=== PATIENT | female | born 1985 | race American Indian/Alaskan Native ===

== ENCOUNTER 2016-03-16 08:46 | Emergency (ER) | payer SELFPAY ==
[2016-03-16 08:55] VITALS: BP 117/71
[2016-03-16] MEDS ORDERED: DUONEB 0.5 MG-3 MG/3 ML SOLN IH ONE (09:09)
--- NOTE | 2016-03-16 09:44 | Emergency Department Report ---
ED Asthma HPI - General Chief Complaint: Upper Respiratory Infection Stated Complaint: ASTHMA ATTACK Time Seen by Provider: 03/16/16 09:05 Source: patient Mode of arrival: Ambulatory Limitations: No Limitations - History of Present Illness Initial Comments: Pt reports cough/congestion x 2 days with SOB since last night. Subjective fever last night. Out of albuterol at home. MD Complaint: shortness of breath, wheezing -: days(s) (1) Asthma History: childhood onset Severity: mild Context: recent URI Associated Symptoms: productive cough. denies: chest pain, hemoptysis, leg edema - Related Data Current Asthma Therapy: none Previous Rx's Medication Instructions Recorded Last Taken Type ALBUTEROL Inhaler [ProAir HFA 2 puff IH QID PRN #1 inh 03/16/16 Unknown Rx Inhaler] ALBUTEROL NEB's [Proventil 0.083% 2.5 mg IH QID PRN #25 neb 03/16/16 Unknown Rx NEBS] Nebulizer [Aeroneb Go Nebulizer] 1 each MC PRN #1 each 03/16/16 Unknown Rx predniSONE [Deltasone] 30 mg PO QDAY #15 tab 03/16/16 Unknown Rx Allergies Allergy/AdvReac Type Severity Reaction Status Date / Time No Known Allergies Allergy Verified 03/16/16 08:50 ED Review of Systems ROS: Stated complaint: ASTHMA ATTACK Other details as noted in HPI Comment: All other systems reviewed and negative Constitutional: chills. denies: fever Eyes: denies: eye pain, eye discharge, vision change ENT: congestion. denies: ear pain, throat pain Respiratory: cough, shortness of breath, wheezing Cardiovascular: denies: chest pain, palpitations Endocrine: no symptoms reported Gastrointestinal: denies: abdominal pain, nausea, diarrhea Genitourinary: denies: urgency, dysuria, discharge Musculoskeletal: denies: back pain, joint swelling, arthralgia Skin: denies: rash, lesions Neurological: denies: headache, weakness, paresthesias Psychiatric: denies: anxiety, depression Hematological/Lymphatic: denies: easy bleeding, easy bruising ED Past Medical Hx - Past Medical History Hx Asthma: Yes - Surgical History Hx Appendectomy: Yes Additional Surgical History: X 2 - Social History Smoking Status: Current Every Day Smoker Substance Use Type: Alcohol - Medications Home Medications: Home Medications Medication Instructions Recorded Confirmed Last Taken Type ALBUTEROL Inhaler [ProAir HFA 2 puff IH QID PRN #1 inh 03/16/16 Unknown Rx Inhaler] ALBUTEROL NEB's [Proventil 0.083% 2.5 mg IH QID PRN #25 neb 03/16/16 Unknown Rx NEBS] Nebulizer [Aeroneb Go Nebulizer] 1 each MC PRN #1 each 03/16/16 Unknown Rx predniSONE [Deltasone] 30 mg PO QDAY #15 tab 03/16/16 Unknown Rx ED Physical Exam - General Limitations: No Limitations General appearance: alert, in no apparent distress - Head Head exam: Present: atraumatic, normocephalic - Eye Eye exam: Present: normal appearance - ENT ENT exam: Present: normal orophraynx, mucous membranes moist - Neck Neck exam: Present: normal inspection, full ROM - Respiratory Respiratory exam: Present: wheezes, decreased breath sounds. Absent: respiratory distress, rhonchi, accessory muscle use - Cardiovascular Cardiovascular Exam: Present: regular rate, normal rhythm. Absent: systolic murmur, diastolic murmur, rubs, gallop - GI/Abdominal GI/Abdominal exam: Present: soft, normal bowel sounds - Extremities Exam Extremities exam: Present: normal inspection - Back Exam Back exam: Present: normal inspection - Neurological Exam Neurological exam: Present: alert, oriented X3 - Psychiatric Psychiatric exam: Present: normal affect, normal mood - Skin Skin exam: Present: warm, dry, intact, normal color. Absent: rash ED Course Vital Signs 03/16/16 03/16/16 03/16/16 08:48 09:21 09:36 Temperature 98.8 F Pulse Rate 100 H Pulse Rate [ 102 H 103 H Bilateral Upper Lobe] Respiratory 18 Rate Respiratory 18 20 Rate [Bilateral Upper Lobe] Blood Pressure 117/71 O2 Sat by Pulse 98 Oximetry - Reevaluation(s) Reevaluation #1: 03/16/16 10:55 Lungs clear. Feels better after nebs. Follow up/return precautions given. NAD, stable for d/c. ED Medical Decision Making - Radiology Data Radiology results: report reviewed naf - Medical Decision Making Pt with asthma exacerbation due to URI. Will treat with steroids and albuterol. No indication for abx at this time. - Differential Diagnosis asthma, pna, viral uri Critical care attestation.: If time is entered above; I have spent that time in minutes in the direct care of this critically ill patient, excluding procedure time. ED Disposition Clinical Impression: Asthma exacerbation Disposition: DISCHARGED TO HOME OR SELFCARE Is pt being admited?: No Condition: Good Instructions: Asthma (ED) Prescriptions: ALBUTEROL Inhaler [ProAir HFA Inhaler] 2 puff IH QID PRN #1 inh PRN Reason: Shortness Of Breath ALBUTEROL NEB's [Proventil 0.083% NEBS] 2.5 mg IH QID PRN #25 neb PRN Reason: Wheezing Nebulizer [Aeroneb Go Nebulizer] 1 each MC PRN #1 each predniSONE [Deltasone] 30 mg PO QDAY #15 tab Referrals: PRIMARY CARE, [Primary Care Provider] - 3-5 Days Time of Disposition: 10:59
--- NOTE | 2016-03-16 10:51 | XRay Report ---
CHEST 2 VIEWS INDICATION: Shortness of breath. COMPARISON: 02/05/2009. FINDINGS: PA and lateral chest radiographs demonstrate normal cardiomediastinal silhouette. Clear lungs. Stable bones, including possible small bilateral cervical ribs. CONCLUSION: No acute disease in the chest. Thank you for the opportunity to participate in this patient's care.
== END 2016-03-16 11:16 | disposition home or self-care (01) ==
LOC: ED 08:46
DX: J45.901 Unspecified asthma with (acute) exacerbation (principal); F17.200 Nicotine dependence, unspecified, uncomplicated; Z90.49 Acquired absence of other specified parts of digestive tract
CPT/HCPCS: 71020; 94640; 96372; 99283; J2930

== ENCOUNTER 2016-03-17 16:17 | Inpatient (IN) | payer OTHER ==
[2016-03-17] MEDS ORDERED: DUONEB 0.5 MG-3 MG/3 ML SOLN IH ONE ×3 (16:44→19:41)
[2016-03-17 17:27] LABS: Basophils % (Auto) 0.6 % (0.0-1.8); Eosinophils % (Auto) 0.1 % (0.0-4.3); Hematocrit 36.5 % (30.3-42.9); Hemoglobin 11.8 gm/dl (10.1-14.3); Mean Corpuscular HGB Conc 32 % (30-34); Mean Corpuscular Hemoglobin 27 pg (28-32); Mean Corpuscular Volume 82 fl (79-97); Platelet Count 193 K/mm3 (140-440); Red Blood Count 4.42 M/mm3 (3.65-5.03); Red Cell Distribution Width 16.3 % (13.2-15.2); White Blood Count 4.5 K/mm3 (4.5-11.0)
[2016-03-17 17:42] LABS: BUN/Creatinine Ratio 14.44; Blood Urea Nitrogen 13 mg/dL (7-17); Calcium 8.2 mg/dL (8.4-10.2); Carbon Dioxide 25 mmol/L (22-30); Chloride 99.3 mmol/L (98-107); Glucose 94 mg/dL (65-100); Potassium 3.9 mmol/L (3.6-5.0); Sodium 138 mmol/L (137-145)
[2016-03-17] MEDS ORDERED: MAGNESIUM SULFATE 2GM/50ML 2 GM/50 ML BAG IV ONE (17:48)
[2016-03-17 17:53] LABS: Anion Gap 18 mmol/L
--- NOTE | 2016-03-17 19:05 | Emergency Department Report ---
ED Asthma HPI - General Chief Complaint: Adult Asthma Stated Complaint: ASTHMA Time Seen by Provider: 03/17/16 17:50 Source: patient Mode of arrival: Wheelchair Limitations: No Limitations - History of Present Illness Initial Comments: 30-year-old female past medical history asthma, no history of intubations presents with complaint of 3-5 days of worsening wheezing and shortness of breath. Patient states she had been using her nebulizer at home with minimal to no relief of her wheezing. Patient states she came to the ER yesterday was treated with nebulizers given prescription for oral prednisone and discharged. Patient states that overnight her shortness of breath worsens which is why she presented to the ED today. On exam patient is awake alert and oriented 3 not in acute distress no audible wheezing or stridor on clinical exam. Patient is on nasal cannula with oxygen saturation at approximately 96%. Nasal cannula sent to 3 L/m. Patient states that she gets severe asthma exacerbations every few months. Denies any palpitations does state that she still feels short of breath no nausea no vomiting. Patient states that she had some subjective fever and chills. MD Complaint: shortness of breath, wheezing Onset/Timin -: days(s) Asthma History: history of prior ED visit Severity: moderate Context: ran out of meds Associated Symptoms: none Treatments Prior to Arrival: inhaled bronchodilator, IV steroid - Related Data Current Asthma Therapy: inhaled bronchodilator, recent oral steroid Baseline Peak Flow (L/min): 350 Previous Rx's Medication Instructions Recorded Last Taken Type ALBUTEROL Inhaler [ProAir HFA 2 puff IH QID PRN #1 inh 03/16/16 Unknown Rx Inhaler] ALBUTEROL NEB's [Proventil 0.083% 2.5 mg IH QID PRN #25 neb 03/16/16 Unknown Rx NEBS] Nebulizer [Aeroneb Go Nebulizer] 1 each MC PRN #1 each 03/16/16 Unknown Rx predniSONE [Deltasone] 30 mg PO QDAY #15 tab 03/16/16 Unknown Rx Allergies Allergy/AdvReac Type Severity Reaction Status Date / Time No Known Allergies Allergy Verified 03/16/16 08:50 ED Review of Systems ROS: Stated complaint: ASTHMA Other details as noted in HPI Constitutional: denies: chills, fever Eyes: denies: eye pain, eye discharge, vision change ENT: denies: ear pain, throat pain Respiratory: cough, shortness of breath, wheezing Cardiovascular: as per HPI. denies: chest pain, palpitations Endocrine: no symptoms reported Gastrointestinal: denies: abdominal pain, nausea, diarrhea Genitourinary: denies: urgency, dysuria, discharge Musculoskeletal: denies: back pain, joint swelling, arthralgia Skin: denies: rash, lesions Neurological: denies: headache, weakness, paresthesias Psychiatric: denies: anxiety, depression Hematological/Lymphatic: denies: easy bleeding, easy bruising ED Past Medical Hx - Past Medical History Hx Asthma: Yes - Surgical History Hx Appendectomy: Yes Additional Surgical History: X 2 - Social History Smoking Status: Current Every Day Smoker Substance Use Type: None - Medications Home Medications: Home Medications Medication Instructions Recorded Confirmed Last Taken Type ALBUTEROL Inhaler [ProAir HFA 2 puff IH QID PRN #1 inh 03/16/16 Unknown Rx Inhaler] ALBUTEROL NEB's [Proventil 0.083% 2.5 mg IH QID PRN #25 neb 03/16/16 Unknown Rx NEBS] Nebulizer [Aeroneb Go Nebulizer] 1 each MC PRN #1 each 03/16/16 Unknown Rx predniSONE [Deltasone] 30 mg PO QDAY #15 tab 03/16/16 Unknown Rx ED Physical Exam - General Limitations: No Limitations General appearance: alert, in no apparent distress - Head Head exam: Present: atraumatic, normocephalic - Eye Eye exam: Present: normal appearance, PERRL, EOMI - ENT ENT exam: Present: mucous membranes moist - Neck Neck exam: Present: normal inspection - Respiratory Respiratory exam: Present: normal lung sounds bilaterally, wheezes (patient has wheezing bilateral lung mancini). Absent: respiratory distress - Cardiovascular Cardiovascular Exam: Present: regular rate, normal rhythm. Absent: systolic murmur, diastolic murmur, rubs, gallop - GI/Abdominal GI/Abdominal exam: Present: soft, normal bowel sounds - Extremities Exam Extremities exam: Present: normal inspection - Back Exam Back exam: Present: normal inspection - Neurological Exam Neurological exam: Present: alert, oriented X3 - Psychiatric Psychiatric exam: Present: normal affect, normal mood - Skin Skin exam: Present: warm, dry, intact, normal color. Absent: rash ED Course Vital Signs 03/17/16 03/17/16 03/17/16 16:38 16:50 18:01 Temperature 100.0 F H Pulse Rate 116 H Pulse Rate [ 84 94 H Left Middle Lobe] Respiratory 22 Rate Respiratory 18 18 Rate [Left Middle Lobe] Blood Pressure 143/78 Blood Pressure [Left] O2 Sat by Pulse 88 Oximetry 03/17/16 03/17/16 18:02 20:29 Temperature Pulse Rate 110 H 97 H Pulse Rate [ Left Middle Lobe] Respiratory 26 H 16 Rate Respiratory Rate [Left Middle Lobe] Blood Pressure Blood Pressure 121/79 119/81 [Left] O2 Sat by Pulse 97 100 Oximetry ED Medical Decision Making - Lab Data Result diagrams: 03/17/16 17:10 03/17/16 17:10 - Medical Decision Making A/P: Asthma exacerbation 1-2 g magnesium IV, 125 mg Solu-Medrol, nebulizer treatments 2-case discussed with Dr. Alcala, as patient has had multiple ED visits this week and patient is still persistently short of breath with borderline oxygen saturation will admit patient to hospital for continuous nebulizer treatment and monitoring. Chest x-ray shows no pneumonia. UA within normal limits, CBC BMP within normal limits 3-I discussed case with hospitalist for admission. Bridge orders placed. Critical care attestation.: If time is entered above; I have spent that time in minutes in the direct care of this critically ill patient, excluding procedure time. ED Disposition Clinical Impression: Asthma exacerbation Disposition: OP ADMITTED IP TO THIS HOSP Is pt being admited?: No Does the pt Need Aspirin: No Condition: Stable Referrals: PRIMARY CARE, [Primary Care Provider] - 3-5 Days
[2016-03-17] MEDS ORDERED: TORADOL IV ONE (19:07)
--- NOTE | 2016-03-17 19:22 | XRay Report ---
FINAL REPORT PROCEDURE: XR CHEST ROUTINE 2V TECHNIQUE: Two views of the chest are obtained HISTORY: Shortness of breath COMPARISON: Chest x-ray dated March 16, 2016 FINDINGS: The heart is normal in size. There is no focal infiltrate, pneumothorax or pleural effusion. IMPRESSION: No abnormalities are seen.
[2016-03-17 19:36] LABS: Bacteria,Urine 4+ /HPF (Negative); Bilirubin,Urine NEG (Negative); Blood,Urine SM (Negative); Ketones,Urine TR mg/dL (Negative); Leukocyte Esterase,Urine TR (Negative); Mucus,Urine 3+ /HPF; Nitrite,Urine POS (Negative); Protein,Urine <15 mg/dL mg/dL (Negative)
[2016-03-17] MEDS ORDERED: TORADOL ONE (21:35)
--- NOTE | 2016-03-17 21:41 | Event Note ---
Date: 03/17/16 See H/p in reports Asthma Exacerbation
[2016-03-17] MEDS ORDERED: PROAIR IH PRN (21:50)
[2016-03-17] MEDS ORDERED: AMBIEN PO PRN (21:51)
[2016-03-17] MEDS ORDERED: MILK OF MAGNESIA PO PRN (21:51)
[2016-03-17] MEDS ORDERED: ZOFRAN IV PRN (21:51)
[2016-03-17] MEDS ORDERED: DULCOLAX PR PRN (21:51)
[2016-03-17] MEDS ORDERED: TYLENOL PO PRN (21:51)
[2016-03-17] MEDS ORDERED: DUONEB 0.5 MG-3 MG/3 ML SOLN IH PRN (21:53)
[2016-03-17] MEDS: DUONEB 0.5 MG-3 MG/3 ML SOLN IH SCH (22:13)
[2016-03-17] MEDS ORDERED: PROVENTIL IH PRN (22:15)
[2016-03-17] MEDS: D5NS 1,000 ML IV SCH (23:09)
[2016-03-17] MEDS: LEVAQUIN 750MG/150ML 750 MG/150 ML BAG IV SCH (23:09)
--- NOTE | 2016-03-17 23:53 | History and Physical Report ---
CHIEF COMPLAINT: Increasing shortness of breath for 2 days. HISTORY OF PRESENT ILLNESS: A 30-year-old -[place] female with history of asthma and no history of prior intubation who comes in for 3-5 days of wheezing and shortness of breath. Cough productive of mucoid sputum. The patient has been to the ER yesterday and was sent home on a nebulizer and albuterol nebulizer solution. The patient continued to have wheezing because of which she returned back to the ER. The patient's oxygen saturation is 96% on 3 liters nasal cannula. The patient stated that she gets severe asthma exacerbation every few months. No palpitations. No fever, no chills. PAST MEDICAL HISTORY: Significant for asthma. CURRENT MEDICATIONS: ProAir inhaler 2 puffs q.i.d., albuterol nebulizer solution q.i.d., prednisone 30 mg p.o. daily. PAST SURGICAL HISTORY: Appendectomy and x 2. SOCIAL HISTORY: Everyday smoker. FAMILY HISTORY: No hypertension, no diabetes. REVIEW OF SYSTEMS: CONSTITUTIONAL: No fever, no chills. No weight loss, no weight gain. HEENT: No sore throat, no thrush. No postnasal drip. NECK: No neck stiffness. CARDIOVASCULAR AND RESPIRATORY SYSTEM: No severe wheezing present. Cough productive of mucoid sputum. No chest pain. GASTROINTESTINAL: No nausea, no vomiting, no diarrhea. GENITOURINARY SYSTEM: No dysuria, no flank pain. MUSCULOSKELETAL: No joint pains. CENTRAL NERVOUS SYSTEM: No syncope. No seizures. SKIN: No rashes. PSYCHIATRIC: No depression. No homicidal tendencies. A 14-point review of systems done, essentially negative. PHYSICAL EXAMINATION: GENERAL: Young female, moderate respiratory distress. VITAL SIGNS: Temperature is 100.0, pulse is 116, respirations are 22, sats are 98%. HEENT: Unremarkable. Pupils equal and reactive. NECK: Supple, no lymphadenopathy, no thyromegaly. LUNGS: Bilateral inspiratory and expiratory rhonchi present. CARDIOVASCULAR: S1, S2 heard. No gallop, no murmur, no rub. Apical impulse in left fifth intercostal space and midclavicular line. ABDOMEN: Soft and benign. No hepatosplenomegaly. No guarding, no rigidity. Hernial orifices are normal. EXTREMITIES: Good pedal pulses. No pedal edema. CENTRAL NERVOUS SYSTEM: Alert and oriented x 4, nonfocal exam. LABORATORY DATA: Significant for white count of 4500, H and H is 11.8 and 36.5, platelet count is 193,000. Sodium is 138, potassium is 3.9, chloride is 99.3, bicarbonate is 25, BUN and creatinine 13 and 0.9, glucose is 94, calcium is 8.2, troponin is less than 0.010. Urine shows nitrite positive, wbc is 3.0, rbc is 8.0, urine bacteria 4+. Chest x-ray shows no infiltrates. ASSESSMENT AND PLAN: 1. Acute respiratory failure, oxygen saturations in the 88% initially. No initial blood gas is available. Going by the oxygen saturation, the patient has acute respiratory failure, which may have resolved at this point. 2. Acute asthma exacerbation. The patient to be continued on DuoNeb every 6 round the clock every 3 hours p.r.n. and Solu-Medrol 60 mg every 8 hours and Levaquin 750 mg q 24 hours. 3. Urinary tract infection. The patient is already started on Levaquin, it should cover for the urinary tract infection too. 4. Nicotine dependence, on Nicoderm patch. The patient counseled about smoking. 5. Deep venous thrombosis prophylaxis, Lovenox 40 mg subcutaneous daily. JOB# [id number] DUSTY/NTS
[2016-03-18] MEDS: DUONEB 0.5 MG-3 MG/3 ML SOLN IH SCH ×4 (01:52→19:26)
[2016-03-18 07:05] LABS: Basophils % (Auto) 0.2 % (0.0-1.8); Hematocrit 34.2 % (30.3-42.9); Mean Corpuscular HGB Conc 32 % (30-34); Mean Corpuscular Hemoglobin 27 pg (28-32); Mean Corpuscular Volume 84 fl (79-97); Platelet Count 200 K/mm3 (140-440); Red Blood Count 4.07 M/mm3 (3.65-5.03); Red Cell Distribution Width 16.4 % (13.2-15.2); White Blood Count 3.5 K/mm3 (4.5-11.0)
[2016-03-18] MEDS: PERCOCET 5/325 PO PRN ×2 (07:41→14:19)
[2016-03-18 08:40] LABS: Alanine Aminotransferase 14 units/L (7-56); Albumin 4.1 g/dL (3.9-5); Albumin/Globulin Ratio 1.5 %; Alkaline Phosphatase 42 units/L (35-129); Bilirubin,Total 0.2 mg/dL (0.1-1.2); Blood Urea Nitrogen 14 mg/dL (7-17); Calcium 8.2 mg/dL (8.4-10.2); Carbon Dioxide 24 mmol/L (22-30); Chloride 99.2 mmol/L (98-107); Glucose 139 mg/dL (65-100); Potassium 4.6 mmol/L (3.6-5.0); Sodium 138 mmol/L (137-145); Total Protein 6.9 g/dL (6.3-8.2)
[2016-03-18 08:44] LABS: Anion Gap 19 mmol/L
[2016-03-18] MEDS: HABITROL TD SCH (10:51)
--- NOTE | 2016-03-18 13:31 | Progress Note ---
Assessment and Plan Assessment and plan: 1. Acute respiratory failure Due to asthma exacerbation Treat underlying condition, supplemental oxygen 2. Asthma exacerbation/pneumonitis Persistant asthma, failed outpatient treatment In ER received high-dose corticosteroids, magnesium and nebulizer treatment Admitted and started on antibiotics, IV corticosteroids, inhaled bronchodilators and supplemental oxygen; also on Singulair Taper corticosteroids depending on clinical status 3. Tobacco abuse Nicotine patch Counseled extensively regarding importance of quitting especially given her asthma status 4. DVT prophylaxis History Interval history: still wheezing, on nonrebreather Hospitalist Physical - Constitutional Vitals: Temp Pulse Resp BP Pulse Ox 98.2 F 78 18 103/60 95 03/18/16 07:50 03/18/16 12:06 03/18/16 12:06 03/18/16 12:06 03/18/16 07:50 General appearance: Present: no acute distress, well-nourished - EENT Eyes: Present: PERRL, EOM intact - Neck Neck: Present: supple, normal ROM. Absent: masses or JVD - Respiratory Respiratory effort: normal Respiratory: bilateral: diminished, wheezing, negative: rales - Cardiovascular Rhythm: regular Heart Sounds: Present: S1 & S2. Absent: systolic murmur - Extremities Extremities: no ischemia - Abdominal General gastrointestinal: soft, non-tender, non-distended, normal bowel sounds - Integumentary Integumentary: Present: warm, dry. Absent: jaundice, rash - Psychiatric Psychiatric: cooperative - Neurologic Neurologic: CNII-XII intact, no focal deficits Results - Labs CBC & Chem 7: 03/18/16 06:02 03/18/16 06:02 Labs: Laboratory Last Values WBC 3.5 K/mm3 (4.5-11.0) L 03/18/16 06:02 RBC 4.07 M/mm3 (3.65-5.03) 03/18/16 06:02 Hgb 11.0 gm/dl (10.1-14.3) 03/18/16 06:02 Hct 34.2 % (30.3-42.9) 03/18/16 06:02 MCV 84 fl (79-97) 03/18/16 06:02 MCH 27 pg (28-32) L 03/18/16 06:02 MCHC 32 % (30-34) 03/18/16 06:02 RDW 16.4 % (13.2-15.2) H 03/18/16 06:02 Plt Count 200 K/mm3 (140-440) 03/18/16 06:02 Lymph % (Auto) 12.8 % (13.4-35.0) L 03/18/16 06:02 Brown % (Auto) 1.7 % (0.0-7.3) 03/18/16 06:02 Eos % (Auto) 0.0 % (0.0-4.3) 03/18/16 06:02 Baso % (Auto) 0.2 % (0.0-1.8) 03/18/16 06:02 Lymph # 0.5 K/mm3 (1.2-5.4) L 03/18/16 06:02 Brown # 0.1 K/mm3 (0.0-0.8) 03/18/16 06:02 Eos # 0.0 K/mm3 (0.0-0.4) 03/18/16 06:02 Baso # 0.0 K/mm3 (0.0-0.1) 03/18/16 06:02 Seg Neutrophils % 85.3 % (40.0-70.0) H 03/18/16 06:02 Seg Neutrophils # 3.0 K/mm3 (1.8-7.7) 03/18/16 06:02 Sodium 138 mmol/L (137-145) 03/18/16 06:02 Potassium 4.6 mmol/L (3.6-5.0) 03/18/16 06:02 Chloride 99.2 mmol/L (98-107) 03/18/16 06:02 Carbon Dioxide 24 mmol/L (22-30) 03/18/16 06:02 Anion Gap 19 mmol/L 03/18/16 06:02 BUN 14 mg/dL (7-17) 03/18/16 06:02 Creatinine 0.7 mg/dL (0.7-1.2) 03/18/16 06:02 Estimated GFR > 60 ml/min 03/18/16 06:02 BUN/Creatinine Ratio 20.00 % 03/18/16 06:02 Glucose 139 mg/dL (65-100) H 03/18/16 06:02 Calcium 8.2 mg/dL (8.4-10.2) L 03/18/16 06:02 Total Bilirubin 0.2 mg/dL (0.1-1.2) 03/18/16 06:02 AST 26 units/L (5-40) 03/18/16 06:02 ALT 14 units/L (7-56) 03/18/16 06:02 Alkaline Phosphatase 42 units/L (35-129) 03/18/16 06:02 Troponin T < 0.010 ng/mL (0.00-0.029) 03/17/16 17:10 Total Protein 6.9 g/dL (6.3-8.2) 03/18/16 06:02 Albumin 4.1 g/dL (3.9-5) 03/18/16 06:02 Albumin/Globulin Ratio 1.5 % 03/18/16 06:02 Urine Color Yellow (Yellow) 03/17/16 19:00 Urine Turbidity Slightly-cloudy (Clear) 03/17/16 19:00 Urine pH 6.0 (5.0-7.0) 03/17/16 19:00 Ur Specific [place] 1.023 (1.003-1.030) 03/17/16 19:00 Urine Protein <15 mg/dl mg/dL (Negative) 03/17/16 19:00 Urine Glucose (UA) Neg mg/dL (Negative) 03/17/16 19:00 Urine Ketones Tr mg/dL (Negative) 03/17/16 19:00 Urine Blood Sm (Negative) 03/17/16 19:00 Urine Nitrite Pos (Negative) 03/17/16 19:00 Urine Bilirubin Neg (Negative) 03/17/16 19:00 Urine Urobilinogen 2.0 mg/dL (<2.0) 03/17/16 19:00 Ur Leukocyte Esterase Tr (Negative) 03/17/16 19:00 Urine WBC (Auto) 3.0 /HPF (0.0-6.0) 03/17/16 19:00 Urine RBC (Auto) 8.0 /HPF (0.0-6.0) 03/17/16 19:00 U Epithel Cells (Auto) 1.0 /HPF (0-13.0) 03/17/16 19:00 Urine Bacteria (Auto) 4+ /HPF (Negative) 03/17/16 19:00 Urine Mucus 3+ /HPF 03/17/16 19:00 Urine HCG, Qual Negative (Negative) 03/17/16 19:00 - Imaging and Cardiology Chest x-ray: image reviewed (no acute process)
[2016-03-18] MEDS: D5NS 1,000 ML IV SCH (14:26)
[2016-03-18] MEDS: SINGULAIR PO SCH (22:33)
[2016-03-18] MEDS: LEVAQUIN 750MG/150ML 750 MG/150 ML BAG IV SCH (22:45)
--- NOTE | 2016-03-18 23:32 | Admit Criteria Form ---
Admission Criteria Documentation: ASTHMA Clinical Indications for Admission to Inpatient Care (Place 'X' for any and all applicable criteria): Admission is indicated for ANY ONE of the following (1)(2)(3)(4)(5): [ ]I. Absent or markedly diminished breath sounds (silent chest) [ ]II. Oxygen saturation < 92% [ ]III. PaCO2 = / > 42 mm Hg (5.6 kPa) [ ]IV. Peak expiratory flow rate < 40% of predicted or personal best after treatment. [ ]V. Peak expiratory flow rate < 33% of predicted or personal before after treatment [ ]. Change in mental status [ ]VII. Ventilatory support required [ ]VIII. PaO2 < 60 mm Hg (8.0 kPa) [ ]IX. Cyanosis [ ]X. Cardiac dysrhythmia (e.g., bradycardia) [ ]XI. Hemodynamic instability [ ]XII. Radiographic evidence of complication requiring inpatient treatment (e.g., pneumonia, pneumothorax) [ X]XIII. Inpatient admission required rather than observation care (also use Asthma: Observation Care guideline as appropriate) because of ANY ONE of the following: [ X]a) Respiratory finding that is severe or persistent (eg, dyspnea, tachypnea, accessory muscle use) [ ]b) Airflow measurements less than 60% of predicted or personal best that persist (e.g., over 24 hours) or worsen despite treatments [ ]c) Supplemental oxygen or respiratory treatments for over 24 hours that are performable only in acute inpatient setting [ ]d) Other condition, treatment or monitoring requiring inpatient admission. Extended stay beyond goal length of stay may be needed for (26)(27)(28): [ ]a) Severe respiratory failure (23) (29) (30) [ ]b) Secondary causes and complications (25) [ ]c) Status asthmaticus [ ]d) Chronic obstructive asthma [ ]e) Older patients (29) [ ]f) Slow resolution [ ]g) Clinically significant exacerbation of comorbidities (eg, cedrick. heart failure, atrial fibrillation) The original [employer] content created by [employer] has been revised. The portions of the content which have been revised are identified through the use of italic text or in bold, and [employer] has neither reviewed nor approved the modified material. All other unmodified content is copyright [employer] Please see references footnoted in the original [facility] edition 2016 Admission Criteria Met: Yes
[2016-03-19] MEDS: DUONEB 0.5 MG-3 MG/3 ML SOLN IH SCH ×2 (01:40→08:31)
[2016-03-19] MEDS: D5NS 1,000 ML IV SCH ×2 (04:51→20:42)
[2016-03-19] MEDS: PERCOCET 5/325 PO PRN ×2 (07:27→20:42)
[2016-03-19] MEDS: HABITROL TD SCH (09:12)
[2016-03-19] MEDS: LEVAQUIN PO SCH (13:14)
--- NOTE | 2016-03-19 16:10 | Progress Note ---
Assessment and Plan Assessment and plan: 1. Acute respiratory failure Due to asthma exacerbation Treat underlying condition, supplemental oxygen 2. Asthma exacerbation/pneumonitis Persistant asthma, failed outpatient treatment In ER received high-dose corticosteroids, magnesium and nebulizer treatment Admitted and started on antibiotics, IV corticosteroids, inhaled bronchodilators and supplemental oxygen; also on Singulair Start tapering corticosteroids Slowly improving 3. Tobacco abuse Nicotine patch Counseled extensively regarding importance of quitting especially given her asthma status 4. UTI UA suggestive of UTI, urine culture growing GNR Already on levofloxacin for #2 5. DVT prophylaxis History Interval history: feeling better, exercise tolerance improved, but still SOB Hospitalist Physical - Constitutional Vitals: Temp Pulse Resp BP Pulse Ox 98.1 F 98 H 18 115/55 95 03/19/16 12:09 03/19/16 12:09 03/19/16 12:03/19/16 12:03/18/16 20:00 General appearance: Present: no acute distress, well-nourished - EENT Eyes: Present: PERRL, EOM intact. Absent: scleral icterus, conjunctival injection - Neck Neck: Present: supple, normal ROM. Absent: masses or JVD - Respiratory Respiratory effort: normal (at rest) Respiratory: bilateral: diminished, wheezing ( exp wheezes) - Cardiovascular Rhythm: regular Heart Sounds: Present: S1 & S2. Absent: systolic murmur - Extremities Extremities: no ischemia - Abdominal General gastrointestinal: soft, non-tender, non-distended, normal bowel sounds - Psychiatric Psychiatric: cooperative - Neurologic Neurologic: CNII-XII intact, no focal deficits Results - Labs CBC & Chem 7: 03/18/16 06:02 03/18/16 06:02 Labs: Laboratory Last Values WBC 3.5 K/mm3 (4.5-11.0) L 03/18/16 06:02 RBC 4.07 M/mm3 (3.65-5.03) 03/18/16 06:02 Hgb 11.0 gm/dl (10.1-14.3) 03/18/16 06:02 Hct 34.2 % (30.3-42.9) 03/18/16 06:02 MCV 84 fl (79-97) 03/18/16 06:02 MCH 27 pg (28-32) L 03/18/16 06:02 MCHC 32 % (30-34) 03/18/16 06:02 RDW 16.4 % (13.2-15.2) H 03/18/16 06:02 Plt Count 200 K/mm3 (140-440) 03/18/16 06:02 Lymph % (Auto) 12.8 % (13.4-35.0) L 03/18/16 06:02 [place] % (Auto) 1.7 % (0.0-7.3) 03/18/16 06:02 Eos % (Auto) 0.0 % (0.0-4.3) 03/18/16 06:02 Baso % (Auto) 0.2 % (0.0-1.8) 03/18/16 06:02 Lymph # 0.5 K/mm3 (1.2-5.4) L 03/18/16 06:02 [place] # 0.1 K/mm3 (0.0-0.8) 03/18/16 06:02 Eos # 0.0 K/mm3 (0.0-0.4) 03/18/16 06:02 Baso # 0.0 K/mm3 (0.0-0.1) 03/18/16 06:02 Seg Neutrophils % 85.3 % (40.0-70.0) H 03/18/16 06:02 Seg Neutrophils # 3.0 K/mm3 (1.8-7.7) 03/18/16 06:02 Sodium 138 mmol/L (137-145) 03/18/16 06:02 Potassium 4.6 mmol/L (3.6-5.0) 03/18/16 06:02 Chloride 99.2 mmol/L (98-107) 03/18/16 06:02 Carbon Dioxide 24 mmol/L (22-30) 03/18/16 06:02 Anion Gap 19 mmol/L 03/18/16 06:02 BUN 14 mg/dL (7-17) 03/18/16 06:02 Creatinine 0.7 mg/dL (0.7-1.2) 03/18/16 06:02 Estimated GFR > 60 ml/min 03/18/16 06:02 BUN/Creatinine Ratio 20.00 % 03/18/16 06:02 Glucose 139 mg/dL (65-100) H 03/18/16 06:02 Calcium 8.2 mg/dL (8.4-10.2) L 03/18/16 06:02 Total Bilirubin 0.2 mg/dL (0.1-1.2) 03/18/16 06:02 AST 26 units/L (5-40) 03/18/16 06:02 ALT 14 units/L (7-56) 03/18/16 06:02 Alkaline Phosphatase 42 units/L (35-129) 03/18/16 06:02 Troponin T < 0.010 ng/mL (0.00-0.029) 03/17/16 17:10 Total Protein 6.9 g/dL (6.3-8.2) 03/18/16 06:02 Albumin 4.1 g/dL (3.9-5) 03/18/16 06:02 Albumin/Globulin Ratio 1.5 % 03/18/16 06:02 Urine Color Yellow (Yellow) 03/17/16 19:00 Urine Turbidity Slightly-cloudy (Clear) 03/17/16 19:00 Urine pH 6.0 (5.0-7.0) 03/17/16 19:00 Ur Specific [place] 1.023 (1.003-1.030) 03/17/16 19:00 Urine Protein <15 mg/dl mg/dL (Negative) 03/17/16 19:00 Urine Glucose (UA) Neg mg/dL (Negative) 03/17/16 19:00 Urine Ketones Tr mg/dL (Negative) 03/17/16 19:00 Urine Blood Sm (Negative) 03/17/16 19:00 Urine Nitrite Pos (Negative) 03/17/16 19:00 Urine Bilirubin Neg (Negative) 03/17/16 19:00 Urine Urobilinogen 2.0 mg/dL (<2.0) 03/17/16 19:00 Ur Leukocyte Esterase Tr (Negative) 03/17/16 19:00 Urine WBC (Auto) 3.0 /HPF (0.0-6.0) 03/17/16 19:00 Urine RBC (Auto) 8.0 /HPF (0.0-6.0) 03/17/16 19:00 U Epithel Cells (Auto) 1.0 /HPF (0-13.0) 03/17/16 19:00 Urine Bacteria (Auto) 4+ /HPF (Negative) 03/17/16 19:00 Urine Mucus 3+ /HPF 03/17/16 19:00 Urine HCG, Qual Negative (Negative) 03/17/16 19:00
[2016-03-19] MEDS: SINGULAIR PO SCH (20:59)
[2016-03-20 09:10] VITALS: BP 108/55
[2016-03-20] MEDS: LEVAQUIN PO SCH (10:13)
[2016-03-20] MEDS: HABITROL TD SCH (10:13)
[2016-03-20] MEDS: D5NS 1,000 ML IV SCH (12:43)
--- NOTE | 2016-03-20 14:17 | Discharge Summary ---
Providers - Providers Date of Admission: 03/17/16 19:57 Date of discharge: 03/20/16 Attending physician: JELANI SANCHEZ Primary care physician: SURGICAL FIRST ASSISTANT Hospitalization Reason for admission: SOB Condition: Stable Pertinent studies: CXR Hospital course: Patient is a 30 years old -[place]ish female with asthma, with multiple exacerbation in the last few months, still a smoker, who presented to the hospital complaining of worsening shortness of breath and dry cough. Diagnosed with acute respiratory failure secondary to asthma exacerbation; started on antibiotics, IV corticosteroids, inhaled bronchodilators and supplemental oxygen ; she improved slowly and was transitioned to by mouth corticosteroids. Also diagnosed with Escherichia coli UTI resistant to levofloxacin, so will be discharge on Septra. Counseled regarding importance of quitting smoking and follow-up with a plate finisher for LFTs and further management of her asthma. Discharge diagnosis: 1. Acute respiratory failure Due to asthma exacerbation 2. Asthma exacerbation/pneumonitis Persistant asthma, failed outpatient treatment Received antibiotics, corticosteroids (will be discharged on taper), inhaled bronchodilators, supplemental oxygen 3. Tobacco abuse Nicotine patch Counseled extensively regarding importance of quitting especially given her asthma status 4. UTI Escherichia coli UTI; resistant to levofloxacin; switch to Septra based on susceptibilities Disposition: DISCHARGED TO HOME OR SELFCARE Time spent for discharge: 35 minutes Core Measure Documentation - Palliative Care Palliative Care/ Comfort Measures: Not Applicable - Core Measures Any of the following diagnoses?: none Exam - Physical Exam Narrative exam: Patient seen and examined: - Constitutional Vitals: Temp Pulse Resp BP Pulse Ox 98.0 F 82 16 108/55 96 03/20/16 08:07 03/20/16 08:07 03/20/16 08:07 03/20/16 08:07 03/20/16 08:07 General appearance: Present: no acute distress, well-nourished - EENT Eyes: Present: PERRL, EOM intact - Neck Neck: Present: supple, normal ROM. Absent: masses or JVD - Respiratory Respiratory effort: normal Respiratory: bilateral: CTA, wheezing (rare expiratory wheezes), negative: rales , rhonchi - Cardiovascular Rhythm: regular Heart Sounds: Present: S1 & S2. Absent: systolic murmur - Extremities Extremities: no ischemia - Abdominal General gastrointestinal: Present: soft, non-tender, non-distended, normal bowel sounds - Musculoskeletal Musculoskeletal: strength equal bilaterally - Neurologic Neurologic: CNII-XII intact, no focal deficits Plan Activity: advance as tolerated Diet: low cholesterol, low salt Follow up with: PRIMARY CARE, [Primary Care Provider] - 3-5 Days JORGE MOMIN MD [Staff Physician] - 10 Days (PFTs) Prescriptions: Montelukast [Singulair] 10 mg PO QHS #30 tablet ALBUTEROL Inhaler [ProAir HFA Inhaler] 2 puff IH QID PRN #1 inh PRN Reason: Shortness Of Breath ALBUTEROL NEB's [Proventil 0.083% NEBS] 2.5 mg IH QID PRN #25 neb PRN Reason: Wheezing Nebulizer [Aeroneb Go Nebulizer] 1 each MC PRN #1 each predniSONE [Deltasone] 20 mg PO QDAY #14 tab Sulfamethoxazole/Trimethoprim [Bactrim 400-80 mg] 1 tab PO BID #10 tab
== END 2016-03-20 16:55 | disposition home or self-care (01) | DRG 193 ==
LOC: ED 16:17 → 3A 19:57
PROVIDERS: ADMIT Internal Medicine; ATTEND Internal Medicine
DX: J18.9 Pneumonia, unspecified organism (principal); J96.00 Acute respiratory failure, unspecified whether with hypoxia or hypercapnia; J45.901 Unspecified asthma with (acute) exacerbation; N39.0 Urinary tract infection, site not specified; B96.20 Unspecified Escherichia coli [E. coli] as the cause of diseases classified elsewhere; F17.200 Nicotine dependence, unspecified, uncomplicated; Z90.49 Acquired absence of other specified parts of digestive tract
CPT/HCPCS: 36415; 71020; 80048; 80053; 81001; 81025; 84484; 85025; 87076; 87086; 87186; 93005; 93010; 94640; 96365; 96375; 99406; J1885; J1956; J2930; J3475; J7042

== ENCOUNTER 2016-04-24 15:19 | Emergency (ER) | payer SELFPAY ==
[2016-04-24 15:29] VITALS: BP 116/79
--- NOTE | 2016-04-24 17:15 | Emergency Department Report ---
ED Recheck HPI - General Chief Complaint: Laceration/Recheck/Suture Stated Complaint: SUTURE REMOVAL Time Seen by Provider: 04/24/16 16:49 Source: patient Mode of arrival: Ambulatory Limitations: No Limitations - Related Data Previous Rx's Medication Instructions Recorded Last Taken Type ALBUTEROL Inhaler [ProAir HFA 2 puff IH QID PRN #1 inh 03/20/16 Unknown Rx Inhaler] ALBUTEROL NEB's [Proventil 0.083% 2.5 mg IH QID PRN #25 neb 03/20/16 Unknown Rx NEBS] Montelukast [Singulair] 10 mg PO QHS #30 tablet 03/20/16 Unknown Rx Nebulizer [Aeroneb Go Nebulizer] 1 each MC PRN #1 each 03/20/16 Unknown Rx predniSONE [Deltasone] 20 mg PO QDAY #14 tab 03/20/16 Unknown Rx Ibuprofen [Motrin] 600 mg PO Q8H PRN #15 tablet 04/16/16 Unknown Rx Sulfamethoxazole/Trimethoprim 1 tab PO BID #20 tab 04/16/16 Unknown Rx [Bactrim 400-80 mg] Cephalexin [Keflex] 500 mg PO Q12HR #20 cap 04/18/16 Unknown Rx HYDROcodone/APAP 5-325 [[place] 1 each PO BID #10 tablet 04/18/16 Unknown Rx 5-325 mg TAB] Allergies Allergy/AdvReac Type Severity Reaction Status Date / Time No Known Allergies Allergy Verified 03/16/16 08:50 ED Review of Systems ROS: Stated complaint: SUTURE REMOVAL Other details as noted in HPI ED Past Medical Hx - Past Medical History Previous Medical History?: Yes Hx Asthma: Yes Additional medical history: recurrent skin cyst - Surgical History Hx Appendectomy: Yes Additional Surgical History: X 2 - Social History Smoking Status: Never Smoker Substance Use Type: Alcohol - Medications Home Medications: Home Medications Medication Instructions Recorded Confirmed Last Taken Type ALBUTEROL Inhaler [ProAir HFA 2 puff IH QID PRN #1 inh 03/20/16 Unknown Rx Inhaler] ALBUTEROL NEB's [Proventil 0.083% 2.5 mg IH QID PRN #25 neb 03/20/16 Unknown Rx NEBS] Montelukast [Singulair] 10 mg PO QHS #30 tablet 03/20/16 Unknown Rx Nebulizer [Aeroneb Go Nebulizer] 1 each MC PRN #1 each 03/20/16 Unknown Rx predniSONE [Deltasone] 20 mg PO QDAY #14 tab 03/20/16 Unknown Rx Ibuprofen [Motrin] 600 mg PO Q8H PRN #15 tablet 04/16/16 Unknown Rx Sulfamethoxazole/Trimethoprim 1 tab PO BID #20 tab 04/16/16 Unknown Rx [Bactrim 400-80 mg] Cephalexin [Keflex] 500 mg PO Q12HR #20 cap 04/18/16 Unknown Rx HYDROcodone/APAP 5-325 [[place] 1 each PO BID #10 tablet 04/18/16 Unknown Rx 5-325 mg TAB] ED Physical Exam - General Limitations: No Limitations ED Course Vital Signs 04/24/16 15:26 Temperature 98.2 F Pulse Rate 76 Respiratory 16 Rate Blood Pressure 116/79 O2 Sat by Pulse 100 Oximetry Critical care attestation.: If time is entered above; I have spent that time in minutes in the direct care of this critically ill patient, excluding procedure time. ED Disposition Condition: Stable
== END 2016-04-24 17:35 | disposition home or self-care (01) ==
LOC: ED 15:19
DX: Z48.02 Encounter for removal of sutures (principal); Z53.21 Procedure and treatment not carried out due to patient leaving prior to being seen by health care provider

== ENCOUNTER 2016-10-20 17:43 | Emergency (ER) | payer SELFPAY ==
[2016-10-20 17:52] VITALS: BP 121/72
--- NOTE | 2016-10-20 22:15 | Emergency Department Report ---
ED ENT HPI - General Chief complaint: Dental/Oral Stated complaint: TOOTHPAIN/THROAT SWELLING Time Seen by Provider: 10/20/16 21:57 Source: patient Mode of arrival: Ambulatory Limitations: No Limitations - History of Present Illness MD complaint: tooth pain - Related Data Previous Rx's Medication Instructions Recorded Last Taken Type ALBUTEROL Inhaler [ProAir HFA 2 puff IH QID PRN #1 inh 03/20/16 Unknown Rx Inhaler] ALBUTEROL NEB's [Proventil 0.083% 2.5 mg IH QID PRN #25 neb 03/20/16 Unknown Rx NEBS] Montelukast [Singulair] 10 mg PO QHS #30 tablet 03/20/16 Unknown Rx Nebulizer [Aeroneb Go Nebulizer] 1 each MC PRN #1 each 03/20/16 Unknown Rx predniSONE [Deltasone] 20 mg PO QDAY #14 tab 03/20/16 Unknown Rx Ibuprofen [Motrin] 600 mg PO Q8H PRN #15 tablet 04/16/16 Unknown Rx Sulfamethoxazole/Trimethoprim 1 tab PO BID #20 tab 04/16/16 Unknown Rx [Bactrim 400-80 mg] Cephalexin [Keflex] 500 mg PO Q12HR #20 cap 04/18/16 Unknown Rx HYDROcodone/APAP 5-325 [[place] 1 each PO BID #10 tablet 04/18/16 Unknown Rx 5-325 mg TAB] Allergies Allergy/AdvReac Type Severity Reaction Status Date / Time No Known Allergies Allergy Verified 10/20/16 17:48 ED Dental HPI - General Chief complaint: Dental/Oral Stated complaint: TOOTHPAIN/THROAT SWELLING Time Seen by Provider: 10/20/16 21:57 Source: patient Mode of arrival: Ambulatory Limitations: No Limitations - Related Data Previous Rx's Medication Instructions Recorded Last Taken Type ALBUTEROL Inhaler [ProAir HFA 2 puff IH QID PRN #1 inh 03/20/16 Unknown Rx Inhaler] ALBUTEROL NEB's [Proventil 0.083% 2.5 mg IH QID PRN #25 neb 03/20/16 Unknown Rx NEBS] Montelukast [Singulair] 10 mg PO QHS #30 tablet 03/20/16 Unknown Rx Nebulizer [Aeroneb Go Nebulizer] 1 each MC PRN #1 each 03/20/16 Unknown Rx predniSONE [Deltasone] 20 mg PO QDAY #14 tab 03/20/16 Unknown Rx Ibuprofen [Motrin] 600 mg PO Q8H PRN #15 tablet 04/16/16 Unknown Rx Sulfamethoxazole/Trimethoprim 1 tab PO BID #20 tab 04/16/16 Unknown Rx [Bactrim 400-80 mg] Cephalexin [Keflex] 500 mg PO Q12HR #20 cap 04/18/16 Unknown Rx HYDROcodone/APAP 5-325 [[place] 1 each PO BID #10 tablet 04/18/16 Unknown Rx 5-325 mg TAB] Allergies Allergy/AdvReac Type Severity Reaction Status Date / Time No Known Allergies Allergy Verified 10/20/16 17:48 ED Review of Systems ROS: Stated complaint: TOOTHPAIN/THROAT SWELLING Other details as noted in HPI ED Past Medical Hx - Past Medical History Previous Medical History?: Yes Hx Asthma: Yes Additional medical history: recurrent skin cyst - Surgical History Hx Appendectomy: Yes Additional Surgical History: X 2 - Social History Smoking Status: Current Every Day Smoker Substance Use Type: None - Medications Home Medications: Home Medications Medication Instructions Recorded Confirmed Last Taken Type ALBUTEROL Inhaler [ProAir HFA 2 puff IH QID PRN #1 inh 03/20/16 Unknown Rx Inhaler] ALBUTEROL NEB's [Proventil 0.083% 2.5 mg IH QID PRN #25 neb 03/20/16 Unknown Rx NEBS] Montelukast [Singulair] 10 mg PO QHS #30 tablet 03/20/16 Unknown Rx Nebulizer [Aeroneb Go Nebulizer] 1 each MC PRN #1 each 03/20/16 Unknown Rx predniSONE [Deltasone] 20 mg PO QDAY #14 tab 03/20/16 Unknown Rx Ibuprofen [Motrin] 600 mg PO Q8H PRN #15 tablet 04/16/16 Unknown Rx Sulfamethoxazole/Trimethoprim 1 tab PO BID #20 tab 04/16/16 Unknown Rx [Bactrim 400-80 mg] Cephalexin [Keflex] 500 mg PO Q12HR #20 cap 04/18/16 Unknown Rx HYDROcodone/APAP 5-325 [[place] 1 each PO BID #10 tablet 04/18/16 Unknown Rx 5-325 mg TAB] ED Physical Exam - General Limitations: No Limitations ED Course Vital Signs 10/20/16 17:48 Temperature 98.7 F Pulse Rate 83 Respiratory 18 Rate Blood Pressure 121/72 O2 Sat by Pulse 100 Oximetry Critical care attestation.: If time is entered above; I have spent that time in minutes in the direct care of this critically ill patient, excluding procedure time. ED Disposition Condition: Stable Referrals: PRIMARY CARE, [Primary Care Provider] - 3-5 Days
[2016-10-20] MEDS ORDERED: LIDOCAINE VISCOUS 2% PO ONE (22:35)
[2016-10-20] MEDS ORDERED: LIDOCAINE VISCOUS 2% ONE (22:39)
== END 2016-10-20 23:49 | disposition home or self-care (01) ==
LOC: ED 17:43
DX: K08.89 Other specified disorders of teeth and supporting structures (principal); J45.909 Unspecified asthma, uncomplicated; F17.200 Nicotine dependence, unspecified, uncomplicated
CPT/HCPCS: 99282

== ENCOUNTER 2016-11-01 23:35 | Emergency (ER) | payer OTHER ==
--- NOTE | 2016-11-02 05:37 | Emergency Department Report ---
HPI - General Chief Complaint: Dental/Oral Time Seen by Provider: 11/02/16 05:11 - HPI HPI: Pt report that she has toothache 4 weeks. She said she's been gargling toward warm salt water. She says she has a tooth abscess to her left upper tooth and tooth ache to her right upper tooth. She said that she has been having fever on and off but hasn't taken anything. She says she ate turkey family stated they period denies any nausea or vomiting. Pain is 10 out of 10 and aching. Patient does not have a dentist. Pain is worse with eating and period. Denies any sinus congestion, runny nose or congestion, sore throat, drooling, difficulty swallowing, coughing or shortness of breath. ED Past Medical Hx - Past Medical History Previous Medical History?: Yes Hx Asthma: Yes Additional medical history: recurrent skin cyst - Surgical History Past Surgical History?: Yes Hx Appendectomy: Yes Additional Surgical History: X 2 - Family History Family history: hypertension - Social History Smoking Status: Current Every Day Smoker Substance Use Type: Alcohol - Medications Home Medications: Home Medications Medication Instructions Recorded Confirmed Last Taken Type Clindamycin [Clindamycin CAP] 600 mg PO Q8H #30 capsule 11/02/16 Unknown Rx HYDROcodone/APAP 5-325 [[place] 1 each PO Q6HR PRN #12 tablet 11/02/16 Unknown Rx 5/325] Ibuprofen [Motrin] 600 mg PO Q8H PRN #15 tablet 11/02/16 Unknown Rx ED Review of Systems ROS: Stated complaint: TOOTHACHE Other details as noted in HPI Comment: All other systems reviewed and negative Constitutional: no symptoms reported Eyes: denies: eye pain, eye discharge ENT: dental pain. denies: ear pain, throat pain, hearing loss, epistaxis, congestion Respiratory: no symptoms reported Cardiovascular: denies: chest pain, palpitations, edema, syncope Gastrointestinal: denies: abdominal pain, nausea, vomiting Musculoskeletal: denies: joint swelling, arthralgia, myalgia Skin: change in color. denies: change in hair/nails Neurological: denies: headache, weakness, numbness, paresthesias Physical Exam - Physical Exam Vital Signs: Vital Signs 11/02/16 11/02/16 00:04 04:07 Temperature 98.0 F 97.9 F Pulse Rate 74 70 Respiratory 20 16 Rate Blood Pressure 121/81 122/86 O2 Sat by Pulse 98 99 Oximetry General: This is a 31-year-old female well-nourished well-developed in no acute distress. Physical Exam: Head: Normocephalic, atraumatic, no abrasion, no bruising and no contusion. Eyes: Biateral pupils equal and reactive to light, bilateral EOM intact.. Bilateral conjunctival and sclera without injection, normal accommodation. Ears: Bilateral EAC without any redness drainage or swelling, bilateral TM pearly dutta ,bilateral tragus is normal and nontender. No auricular abnormality. No Mastoid bones tenderness. Nose: Moist, no erythema or congestion. No drainage Mouth: Moist, no pharyngeal exudate or erythema, Uvula is midline and oral airways patent. tongue is normal. UA no peritonsillar abscess noted. Patient with 2 dental caries, tenderness to palpate through right tooth #1 and 2 and 19. No induration or cellulitis noted. No facial swelling. Gums are normal. Neck: Supple, No Cervical adenopathy, full range of motion and no C-spine tenderness. No swelling or tracheal deviation Cardiovascular: S1, S2. Regular rate and rhythm. No murmur. Capillary refill is less then 3 seconds. Lungs: Clear to auscultate bilaterally. No rhonchi, wheezes or rales. No chest wall tenderness Extremities: No clubbing, cyanosis or edema. +2 pulses. No neurovascular compromise Skin: Clean, dry and intact. No rash or lesions. Psych: Normal mood and behavior. ED Course Vital Signs 11/02/16 11/02/16 00:04 04:07 Temperature 98.0 F 97.9 F Pulse Rate 74 70 Respiratory 20 16 Rate Blood Pressure 121/81 122/86 O2 Sat by Pulse 98 99 Oximetry - Reevaluation(s) Reevaluation #1: 11/02/16 06:25 given Percocet 5/325 2 tablets emergency room for pain to left fourth digit. Pain has been relieved. .Metal finger splint placed. See procedure note for details 0 - Orthopedic Splinting/Casting Injury #1 Side: right Upper Extremity Injury Location: finger (right fourth digit) Upper Extremity Immobilizer: aluminum form splint Additional Comments: Status post splint placement patient with good neurovascular status. ED Medical Decision Making - Medical Decision Making ED course: Pt here complaining of toothache 4 weeks. Physical finances for dental caries and dental tenderness. Chin has no access to dentists. Her gums normal with inspection. She voices understanding of diagnosis and treatment plan. I told her she needs to follow up with dentist and I'll refer her to a dentist in the community. Patient will be referred to [facility]. Patient given Percocet 5/310 52 tablets in emergency room and will be discharged home with prescription for clindamycin, Motrin and [place]. Critical care attestation.: If time is entered above; I have spent that time in minutes in the direct care of this critically ill patient, excluding procedure time. ED Disposition Clinical Impression: Tooth ache, Dental cavities Disposition: DC- TO HOME OR SELFCARE Is pt being admited?: No Does the pt Need Aspirin: No Condition: Stable Instructions: Dental Caries (ED), Toothache (ED) Additional Instructions: Please follow-up with dentist as instructed Take antibiotic as prescribed Do not drive or operate heavy machinery while taking [place] as this medication will cause drowsiness Gargle with Listerine twice daily Floss twice daily Prescriptions: Clindamycin [Clindamycin CAP] 600 mg PO Q8H #30 capsule HYDROcodone/APAP 5-325 [[place] 5/325] 1 each PO Q6HR PRN #12 tablet PRN Reason: Pain Ibuprofen [Motrin] 600 mg PO Q8H PRN #15 tablet PRN Reason: Pain Referrals: [facility] [Outside] - 11/06/16 Forms: Accompanied Note, Work/School Release Form(ED)
[2016-11-02 05:59] VITALS: BP 129/81
[2016-11-02] MEDS ORDERED: PERCOCET 5/325 PO ONE (06:15)
== END 2016-11-02 08:33 | disposition home or self-care (01) ==
LOC: ED 23:35
DX: K02.9 Dental caries, unspecified (principal); J45.909 Unspecified asthma, uncomplicated; F17.200 Nicotine dependence, unspecified, uncomplicated; M79.645 Pain in left finger(s)
CPT/HCPCS: 99282

== ENCOUNTER 2017-01-04 18:25 | Emergency (ER) | payer SELFPAY ==
[2017-01-04 18:58] LABS: Basophils % (Auto) 1.2 % (0.0-1.8); Hematocrit 34.9 % (30.3-42.9); Hemoglobin 11.4 gm/dl (10.1-14.3); Mean Corpuscular HGB Conc 33 % (30-34); Mean Corpuscular Hemoglobin 29 pg (28-32); Mean Corpuscular Volume 89 fl (79-97); Platelet Count 256 K/mm3 (140-440); Red Blood Count 3.93 M/mm3 (3.65-5.03); White Blood Count 8.1 K/mm3 (4.5-11.0)
[2017-01-04 19:22] LABS: Alanine Aminotransferase 14 units/L (7-56); Albumin 4.3 g/dL (3.9-5); Albumin/Globulin Ratio 1.7 %; Alkaline Phosphatase 50 units/L (35-129); Anion Gap 20 mmol/L; BUN/Creatinine Ratio 11; Blood Urea Nitrogen 8 mg/dL (7-17); Calcium 8.9 mg/dL (8.4-10.2); Carbon Dioxide 23 mmol/L (22-30); Chloride 98.2 mmol/L (98-107); Glucose 92 mg/dL (65-100); Potassium 3.8 mmol/L (3.6-5.0); Sodium 137 mmol/L (137-145); Total Protein 6.9 g/dL (6.3-8.2)
--- NOTE | 2017-01-04 20:37 | Emergency Department Report ---
ED General Adult HPI - General Chief complaint: Dyspnea/Respdistress Stated complaint: FACIAL SWELLING/NERY Time Seen by Provider: 01/04/17 20:32 Source: patient Mode of arrival: Ambulatory Limitations: No Limitations - History of Present Illness Initial comments: Patient is a 31-year-old female sent to the ER with complaints of facial swelling and sore throat and difficulty swallowing and difficulty breathing due to the sore throat 2 days but worsened today. Patient is not on lisinopril patient denies fever, nausea, vomiting, diarrhea. Patient also complains of discharge from her left ear. Patient complains of chills. Denies chest pain. -: Sudden, days(s) (started 2 days ago but worsened today) Location: face Radiation: non-radiation Severity scale (0 -10): 10 Quality: burning, stabbing Consistency: constant Improves with: rest Worsens with: eating, movement Associated Symptoms: other (complains of facial swelling, throat pain, difficulty swallowing, difficulties breathing due to the throat pain. Swollen eyes and drainage from the left ear) Treatments Prior to Arrival: none - Related Data Previous Rx's Medication Instructions Recorded Last Taken Type Clindamycin [Clindamycin CAP] 600 mg PO Q8H #30 capsule 11/02/16 Unknown Rx HYDROcodone/APAP 5-325 [[place] 1 each PO Q6HR PRN #12 tablet 11/02/16 Unknown Rx 5/325] Ibuprofen [Motrin] 600 mg PO Q8H PRN #15 tablet 11/02/16 Unknown Rx Doxycycline Hyclate [Doxycycline 100 mg PO Q12HR #20 tab 01/05/17 Unknown Rx Hyclate TAB] Ofloxacin 0.3% [Ocuflox] 2 drops OP Q4HR #1 bottle 01/05/17 Unknown Rx methylPREDNISolone [Medrol] 4 mg PO DAILY 6 Days #1 tab.ds.pk 01/05/17 Unknown Rx Allergies Allergy/AdvReac Type Severity Reaction Status Date / Time No Known Allergies Allergy Verified 11/02/16 05:56 ED Review of Systems ROS: Stated complaint: FACIAL SWELLING/NERY Other details as noted in HPI Comment: All other systems reviewed and negative Constitutional: no symptoms reported, see HPI, chills Eyes: as per HPI, eye pain ENT: as per HPI, ear pain Respiratory: see HPI Cardiovascular: as per HPI Endocrine: no symptoms reported, see HPI Gastrointestinal: as per HPI Genitourinary: as per HPI Musculoskeletal: as per HPI Skin: as per HPI Neurological: as per HPI Psychiatric: as per HPI Hematological/Lymphatic: as per HPI ED Past Medical Hx - Past Medical History Hx Asthma: Yes Additional medical history: recurrent skin cyst - Surgical History Hx Appendectomy: Yes Additional Surgical History: X 2, appendectomy - Social History Smoking Status: Current Every Day Smoker Substance Use Type: None - Medications Home Medications: Home Medications Medication Instructions Recorded Confirmed Last Taken Type Clindamycin [Clindamycin CAP] 600 mg PO Q8H #30 capsule 11/02/16 Unknown Rx HYDROcodone/APAP 5-325 [[place] 1 each PO Q6HR PRN #12 tablet 11/02/16 Unknown Rx 5/325] Ibuprofen [Motrin] 600 mg PO Q8H PRN #15 tablet 11/02/16 Unknown Rx Doxycycline Hyclate [Doxycycline 100 mg PO Q12HR #20 tab 01/05/17 Unknown Rx Hyclate TAB] Ofloxacin 0.3% [Ocuflox] 2 drops OP Q4HR #1 bottle 01/05/17 Unknown Rx methylPREDNISolone [Medrol] 4 mg PO DAILY 6 Days #1 tab.ds.pk 01/05/17 Unknown Rx ED Physical Exam - General Limitations: No Limitations General appearance: alert, in no apparent distress - Head Head exam: Present: atraumatic, normocephalic - Eye Eye exam: Present: PERRL, EOMI, conjunctival injection (left conjunctival injection), periorbital swelling - ENT ENT exam: Present: mucous membranes dry, TM's normal bilaterally, normal external ear exam (left eye conjunctival injection noted, left eye swelling noted. ), other (slight left facial swelling noted. Slight oropharynx erythema noted. No exudate noted. ) - Neck Neck exam: Present: normal inspection - Respiratory Respiratory exam: Present: normal lung sounds bilaterally. Absent: respiratory distress - Cardiovascular Cardiovascular Exam: Present: regular rate, normal rhythm. Absent: systolic murmur, diastolic murmur, rubs, gallop - GI/Abdominal GI/Abdominal exam: Present: soft, normal bowel sounds - Extremities Exam Extremities exam: Present: normal inspection - Back Exam Back exam: Present: normal inspection - Neurological Exam Neurological exam: Present: alert, oriented X3 - Psychiatric Psychiatric exam: Present: normal affect, normal mood - Skin Skin exam: Present: warm, dry, intact, normal color. Absent: rash ED Course Vital Signs 01/04/17 01/04/17 01/04/17 18:26 19:42 19:46 Temperature 99.7 F H Pulse Rate 87 83 Respiratory 16 Rate Blood Pressure 130/87 133/84 Blood Pressure [Left] O2 Sat by Pulse 100 100 100 Oximetry 01/04/17 01/04/17 01/04/17 19:47 20:00 21:00 Temperature 99.7 F H Pulse Rate 81 81 86 Respiratory 12 24 23 Rate Blood Pressure 133/84 129/84 Blood Pressure 133/84 [Left] O2 Sat by Pulse 100 Oximetry 01/04/17 01/04/17 01/05/17 22:00 23:00 00:25 Temperature 100.1 F H Pulse Rate 87 89 Respiratory 22 21 Rate Blood Pressure 118/72 104/68 Blood Pressure [Left] O2 Sat by Pulse 98 Oximetry ED Medical Decision Making - Lab Data Result diagrams: 01/04/17 18:40 01/04/17 18:40 Critical care attestation.: If time is entered above; I have spent that time in minutes in the direct care of this critically ill patient, excluding procedure time. ED Disposition Clinical Impression: Facial swelling, Left eye pain, Conjunctivitis, Sore throat, Upper respiratory infection, Pharyngitis, Throat pain in adult Disposition: DC-01 TO HOME OR SELFCARE Is pt being admited?: No Does the pt Need Aspirin: No Condition: Stable Instructions: Conjunctivitis (ED), Upper Respiratory Infection (ED) Additional Instructions: Take prescriptions as directed. Patient to increase water. Take Tylenol or ibuprofen when necessary. To return to ER if condition worsens. Patient to follow up with PCP within 3-5 days. Patient to see ENT within 3-5 days. The patient to see ophthalmology within 3-5 days Prescriptions: Doxycycline Hyclate [Doxycycline Hyclate TAB] 100 mg PO Q12HR #20 tab methylPREDNISolone [Medrol] 4 mg PO DAILY 6 Days #1 tab.ds.pk Ofloxacin 0.3% [Ocuflox] 2 drops OP Q4HR #1 bottle Referrals: PRIMARY CARE, [Primary Care Provider] - 3-5 Days
[2017-01-04] MEDS ORDERED: DILAUDID IV ONE (23:49)
[2017-01-04] MEDS ORDERED: ROCEPHIN/NS 1 GM/50 ML 1 GM/50 ML BAG IV ONE (23:49)
--- NOTE | 2017-01-05 00:06 | Cat Scan Report ---
FINAL REPORT PROCEDURE: CT NECK W CON TECHNIQUE: Computerized axial tomography of the soft tissue neck was performed following the IV injection of iodinated nonionic contrast. HISTORY: throat pain and swelling COMPARISON: No prior studies are available for comparison. FINDINGS: Skull and scalp: Normal. Paranasal sinuses: Normal. Nasopharynx: Adenoid hypertrophy is noted. Oral cavity: Normal . Epiglottis/vallecula: Normal . Larynx/pyriform sinuses: Normal . Thyroid gland: Normal . Lymph nodes: None enlarged . Salivary glands: Normal . Upper thorax: Normal . IMPRESSION: Adenoid hypertrophy. Otherwise negative study
--- NOTE | 2017-01-05 00:06 | Cat Scan Report ---
FINAL REPORT PROCEDURE: CT ORBIT/EAR/FOSSA W CON TECHNIQUE: Computerized axial tomography of the orbits was performed following the IV injection of iodinated nonionic contrast. HISTORY: eye pain. eye swelling COMPARISON: No prior studies are available for comparison. FINDINGS: Bones and sinuses: Normal. Globes: Normal. Extraocular muscles: Normal. Optic nerves: Normal. Lacrimal glands: Normal. Abnormal enhancement: None. Other: Adenoid hypertrophy is noted IMPRESSION: No orbital or facial abnormality. Adenoid hypertrophy
[2017-01-05 01:44] VITALS: BP 105/67
[2017-01-05] MEDS ORDERED: ROCEPHIN/NS 1 GM/50 ML 1 GM/50 ML BAG IV ONE (23:49)
== END 2017-01-05 01:45 | disposition home or self-care (01) ==
LOC: ED 18:25
DX: H57.12 Ocular pain, left eye (principal); J06.9 Acute upper respiratory infection, unspecified; J02.9 Acute pharyngitis, unspecified; H10.9 Unspecified conjunctivitis; R22.0 Localized swelling, mass and lump, head; F17.200 Nicotine dependence, unspecified, uncomplicated; J45.909 Unspecified asthma, uncomplicated
CPT/HCPCS: 36415; 70481; 70491; 80053; 85025; 96365; 96375; 99284; J0696; J1170; J2930; Q9967

== ENCOUNTER 2017-04-26 19:32 | Emergency (ER) | payer SELFPAY ==
[2017-04-26 19:37] VITALS: BP 96/59
[2017-04-26] MEDS ORDERED: KEFLEX PO ONE (20:31)
[2017-04-26] MEDS ORDERED: MOTRIN PO ONE (20:31)
[2017-04-26] MEDS ORDERED: BACTRIM DS PO ONE (20:31)
--- NOTE | 2017-04-26 20:34 | Emergency Department Report ---
Chief Complaint: Extremity Injury, Lower Stated Complaint: Bilateral Foot Edema Time Seen by Provider: 04/26/17 20:23 - HPI History of Present Illness: The patient is a 31-year-old female presents for evaluation of foot pain. The patient reports dorsal right foot pain for the past 3-4 days, worsening, constant for the past one day, burning and stinging in quality, moderate in severity, exacerbated with ambulation. She reports associated redness and swelling to the midfoot and distal lateral foot - Exam Vital Signs: Vital Signs 04/26/17 04/26/17 19:34 19:38 Temperature 98.1 F 98.7 F Pulse Rate 89 83 Respiratory 16 17 Rate Blood Pressure 96/59 Blood Pressure 96/59 [Right] O2 Sat by Pulse 98 100 Oximetry MSE screening note: Focused history and physical exam performed. Due to findings the following was ordered: ED Disposition for MSE Condition: Stable Referrals: PRIMARY CARE, [Primary Care Provider] - 3-5 Days
--- NOTE | 2017-04-26 21:58 | XRay Report ---
FINAL REPORT PROCEDURE: XR FOOT 2V RT TECHNIQUE: RIGHT foot radiographs, AP and lateral views. HISTORY: redness and pain to dorsal distal lateral foot COMPARISON: No prior studies are available for comparison. FINDINGS: Fracture (s) and/or Dislocation(s): None . Alignment: Normal. Joint space(s): Normal. Soft tissues: Normal. Bone mineralization: Normal. Foreign bodies: None. Calcaneal spurring: None. IMPRESSION: Normal Examination.
--- NOTE | 2017-04-26 22:58 | Emergency Department Report ---
ED Extremity Problem HPI - General Chief complaint: Extremity Injury, Lower Stated complaint: Bilateral Foot Edema Time Seen by Provider: 04/26/17 20:23 Source: patient Mode of arrival: Ambulatory Limitations: No Limitations - History of Present Illness Initial comments: The patient is a 31-year-old female presents for evaluation of foot pain. The patient reports dorsal right foot pain for the past week, worsening, constant for the past one day, burning and stinging in quality, moderate in severity, exacerbated with ambulation. She reports associated redness and swelling to the midfoot and distal lateral foot. Patient reports she's been taking Advil which she said has not worked much. She is a past medical history of asthma currently takes no medications and has no known drug allergies. MD Complaint: extremity pain, extremity swelling Severity scale (0 -10): 8 - Related Data Previous Rx's Medication Instructions Recorded Last Taken Type Clindamycin [Clindamycin CAP] 600 mg PO Q8H #30 capsule 11/02/16 Unknown Rx HYDROcodone/APAP 5-325 [[place] 1 each PO Q6HR PRN #12 tablet 11/02/16 Unknown Rx 5/325] Ibuprofen [Motrin] 600 mg PO Q8H PRN #15 tablet 11/02/16 Unknown Rx Doxycycline Hyclate [Doxycycline 100 mg PO Q12HR #20 tab 01/05/17 Unknown Rx Hyclate TAB] Ofloxacin 0.3% [Ocuflox] 2 drops OP Q4HR #1 bottle 01/05/17 Unknown Rx methylPREDNISolone [Medrol] 4 mg PO DAILY 6 Days #1 tab.ds.pk 01/05/17 Unknown Rx Cephalexin [Keflex] 500 mg PO BID #20 capsule 04/26/17 Unknown Rx Ibuprofen 800 mg PO Q8H PRN #30 tablet 04/26/17 Unknown Rx Allergies Allergy/AdvReac Type Severity Reaction Status Date / Time No Known Allergies Allergy Verified 11/02/16 05:56 ED Review of Systems ROS: Stated complaint: Bilateral Foot Edema Other details as noted in HPI ED Past Medical Hx - Past Medical History Previous Medical History?: Yes Hx Asthma: Yes Additional medical history: recurrent skin cyst - Surgical History Past Surgical History?: Yes Hx Appendectomy: Yes Additional Surgical History: X 2, appendectomy - Social History Smoking Status: Current Every Day Smoker Substance Use Type: Alcohol - Medications Home Medications: Home Medications Medication Instructions Recorded Confirmed Last Taken Type Clindamycin [Clindamycin CAP] 600 mg PO Q8H #30 capsule 11/02/16 Unknown Rx HYDROcodone/APAP 5-325 [[place] 1 each PO Q6HR PRN #12 tablet 11/02/16 Unknown Rx 5/325] Ibuprofen [Motrin] 600 mg PO Q8H PRN #15 tablet 11/02/16 Unknown Rx Doxycycline Hyclate [Doxycycline 100 mg PO Q12HR #20 tab 01/05/17 Unknown Rx Hyclate TAB] Ofloxacin 0.3% [Ocuflox] 2 drops OP Q4HR #1 bottle 01/05/17 Unknown Rx methylPREDNISolone [Medrol] 4 mg PO DAILY 6 Days #1 tab.ds.pk 01/05/17 Unknown Rx Cephalexin [Keflex] 500 mg PO BID #20 capsule 04/26/17 Unknown Rx Ibuprofen 800 mg PO Q8H PRN #30 tablet 04/26/17 Unknown Rx ED Physical Exam - General Limitations: No Limitations ED Course Vital Signs 04/26/17 04/26/17 04/26/17 19:34 19:38 20:50 Temperature 98.1 F 98.7 F Pulse Rate 89 83 Respiratory 16 17 18 Rate Blood Pressure 96/59 Blood Pressure 96/59 [Right] O2 Sat by Pulse 98 100 Oximetry Critical care attestation.: If time is entered above; I have spent that time in minutes in the direct care of this critically ill patient, excluding procedure time. ED Disposition Clinical Impression: Cellulitis of foot, right Disposition: DC-01 TO HOME OR SELFCARE Is pt being admited?: No Does the pt Need Aspirin: No Condition: Stable Instructions: Cellulitis (ED) Additional Instructions: Complete antibiotics as prescribed. Take ibuprofen as needed for pain. Follow- up [facility]. Prescriptions: Cephalexin [Keflex] 500 mg PO BID #20 capsule Ibuprofen 800 mg PO Q8H PRN #30 tablet PRN Reason: Pain Referrals: PRIMARY CARE, [Primary Care Provider] - 3-5 Days [facility] [Provider Group] - 3-5 Days Forms: Work/School Release Form(ED)
== END 2017-04-26 23:11 | disposition home or self-care (01) ==
LOC: ED 19:32
DX: L03.115 Cellulitis of right lower limb (principal); F17.200 Nicotine dependence, unspecified, uncomplicated
CPT/HCPCS: 99283

== ENCOUNTER 2017-05-07 18:22 | Emergency (ER) | payer SELFPAY ==
[2017-05-07] MEDS ORDERED: DUONEB *Not for PRN Use IH ONE (18:49)
[2017-05-07] MEDS ORDERED: ZOFRAN ODT PO ONE (23:29)
[2017-05-07] MEDS ORDERED: DELTASONE PO ONE (23:29)
[2017-05-07] MEDS ORDERED: PROVENTIL IH ONE (23:29)
[2017-05-07] MEDS ORDERED: MOTRIN PO ONE (23:29)
--- NOTE | 2017-05-07 23:30 | Emergency Department Report ---
ED General Adult HPI - General Chief complaint: Adult Asthma Stated complaint: VOMITING Time Seen by Provider: 05/07/17 22:11 Source: patient, RN notes reviewed Mode of arrival: Ambulatory Limitations: No Limitations - History of Present Illness Initial comments: This is a 31-year-old female who is previously unknown to this provider. She reports that she is not and reports that she is currently menstruating. She reports no DVT or pulmonary embolus risk factors, and she reports that she does not take oral contraceptives. She has a history of asthma which was diagnosed when she was young, one lifetime hospital admission with no intubations. The patient presents to the ER with a complaint of wheezing, cough, chest wall tightness which is present for a few days, reports this is similar to prior episodes of asthma exacerbations. She is coughing, bringing up clear mucus. Chest wall pain as central, increases with palpation, decreases with rest, and does not radiate anywhere. She describes a few episodes of posttussive emesis. She denies hematemesis or bright red blood per rectum. -: Gradual Location: chest Radiation: non-radiation Severity scale (0 -10): 0 Quality: aching Consistency: intermittent Improves with: rest Worsens with: movement Associated Symptoms: chest pain, cough, shortness of breath. denies: confusion , diaphoresis, fever/chills, headaches, loss of appetite, malaise, nausea/ vomiting, rash, seizure, syncope, weakness - Related Data Previous Rx's Medication Instructions Recorded Last Taken Type Clindamycin [Clindamycin CAP] 600 mg PO Q8H #30 capsule 11/02/16 Unknown Rx HYDROcodone/APAP 5-325 [[place] 1 each PO Q6HR PRN #12 tablet 11/02/16 Unknown Rx 5/325] Ibuprofen [Motrin] 600 mg PO Q8H PRN #15 tablet 11/02/16 Unknown Rx Doxycycline Hyclate [Doxycycline 100 mg PO Q12HR #20 tab 01/05/17 Unknown Rx Hyclate TAB] Ofloxacin 0.3% [Ocuflox] 2 drops OP Q4HR #1 bottle 01/05/17 Unknown Rx methylPREDNISolone [Medrol] 4 mg PO DAILY 6 Days #1 tab.ds.pk 01/05/17 Unknown Rx Cephalexin [Keflex] 500 mg PO BID #20 capsule 03/15/18 Unknown Rx Ibuprofen 800 mg PO Q8H PRN #30 tablet 04/26/17 Unknown Rx Albuterol Sulfate [Proair 90 mcg IH Q4HR PRN #2 aer.pow.ba 05/08/17 Unknown Rx Respiclick] Benzonatate [Tessalon Perles] 100 mg PO Q8HR PRN #30 capsule 05/08/17 Unknown Rx Ibuprofen [Motrin] 600 mg PO Q8H PRN #30 tablet 05/08/17 Unknown Rx Ondansetron [Zofran Odt] 4 mg PO Q8HR PRN #20 tab.rapdis 05/08/17 Unknown Rx predniSONE [Deltasone] 40 mg PO QDAY #8 tab 05/08/17 Unknown Rx Allergies Allergy/AdvReac Type Severity Reaction Status Date / Time No Known Allergies Allergy Verified 11/02/16 05:56 ED Review of Systems ROS: Stated complaint: VOMITING Other details as noted in HPI Constitutional: denies: fever Eyes: denies: vision change ENT: denies: epistaxis Respiratory: cough, shortness of breath, wheezing Cardiovascular: chest pain Gastrointestinal: vomiting Genitourinary: as per HPI Musculoskeletal: as per HPI Skin: as per HPI Neurological: as per HPI Psychiatric: as per HPI Hematological/Lymphatic: as per HPI ED Past Medical Hx - Past Medical History Hx Asthma: Yes Additional medical history: recurrent skin cyst - Surgical History Hx Appendectomy: Yes Additional Surgical History: X 2, appendectomy,tubiligation - Social History Smoking Status: Current Every Day Smoker Substance Use Type: None - Medications Home Medications: Home Medications Medication Instructions Recorded Confirmed Last Taken Type Clindamycin [Clindamycin CAP] 600 mg PO Q8H #30 capsule 11/02/16 Unknown Rx HYDROcodone/APAP 5-325 [[place] 1 each PO Q6HR PRN #12 tablet 11/02/16 Unknown Rx 5/325] Ibuprofen [Motrin] 600 mg PO Q8H PRN #15 tablet 11/02/16 Unknown Rx Doxycycline Hyclate [Doxycycline 100 mg PO Q12HR #20 tab 01/05/17 Unknown Rx Hyclate TAB] Ofloxacin 0.3% [Ocuflox] 2 drops OP Q4HR #1 bottle 01/05/17 Unknown Rx methylPREDNISolone [Medrol] 4 mg PO DAILY 6 Days #1 tab.ds.pk 01/05/17 Unknown Rx Cephalexin [Keflex] 500 mg PO BID #20 capsule 04/26/17 Unknown Rx Ibuprofen 800 mg PO Q8H PRN #30 tablet 04/26/17 Unknown Rx Albuterol Sulfate [Proair 90 mcg IH Q4HR PRN #2 aer.pow.ba 05/08/17 Unknown Rx Respiclick] Benzonatate [Tessalon Perles] 100 mg PO Q8HR PRN #30 capsule 05/08/17 Unknown Rx Ibuprofen [Motrin] 600 mg PO Q8H PRN #30 tablet 05/08/17 Unknown Rx Ondansetron [Zofran Odt] 4 mg PO Q8HR PRN #20 tab.rapdis 05/08/17 Unknown Rx predniSONE [Deltasone] 40 mg PO QDAY #8 tab 05/08/17 Unknown Rx ED Physical Exam - General Limitations: No Limitations General appearance: alert, in no apparent distress - Head Head exam: Present: atraumatic, normocephalic - Eye Eye exam: Present: normal appearance, EOMI - ENT ENT exam: Present: normal exam, normal orophraynx, mucous membranes moist, normal external ear exam - Neck Neck exam: Present: normal inspection, full ROM - Respiratory Respiratory exam: Present: wheezes, rhonchi, chest wall tenderness. Absent: respiratory distress - Cardiovascular Cardiovascular Exam: Present: regular rate, normal rhythm, normal heart sounds. Absent: systolic murmur, diastolic murmur, rubs, gallop - GI/Abdominal GI/Abdominal exam: Present: soft, normal bowel sounds. Absent: distended, tenderness, guarding, rebound, rigid, pulsatile mass - Extremities Exam Extremities exam: Present: normal inspection, full ROM, normal capillary refill. Absent: pedal edema, joint swelling, calf tenderness - Back Exam Back exam: Present: normal inspection, full ROM. Absent: tenderness, CVA tenderness (R), paraspinal tenderness, vertebral tenderness - Neurological Exam Neurological exam: Present: alert, oriented X3, CN II-XII intact, normal gait, other (Extraocular movements intact. Tongue midline. No facial droop. Facial sensation intact to light touch in the V1, V2, V3 distribution bilaterally. 5 and 5 strength in 4 extremities.. Sensation is intact to light touch in 4 extremities.). Absent: motor sensory deficit - Psychiatric Psychiatric exam: Present: normal affect, normal mood - Skin Skin exam: Present: warm, dry, intact, normal color. Absent: rash ED Course Vital Signs 05/07/17 05/07/17 05/07/17 18:46 19:08 22:31 Temperature 98 F Pulse Rate 73 76 Pulse Rate [ 89 Anterior] Respiratory 20 16 Rate Respiratory 22 Rate [Anterior] Blood Pressure 117/78 Blood Pressure 106/60 [Left] O2 Sat by Pulse 97 99 Oximetry ED Medical Decision Making - Lab Data Vital Signs 05/07/17 05/07/17 05/07/17 18:46 19:08 22:31 Temperature 98 F Pulse Rate 73 76 Pulse Rate [ 89 Anterior] Respiratory 20 16 Rate Respiratory 22 Rate [Anterior] Blood Pressure 117/78 Blood Pressure 106/60 [Left] O2 Sat by Pulse 97 99 Oximetry - EKG Data -: EKG Interpreted by Nd EKG shows normal: sinus rhythm - EKG Data 05/08/17 01:42 Sinus, 80 bpm, normal pulse, normal axis, not consistent with a STEMI - Radiology Data Radiology results: report reviewed, image reviewed X-ray the chest is negative for acute disease - Medical Decision Making Differential diagnosis, including but not limited to: Costochondritis, pneumonia , asthma exacerbation Assessment and plan: 31-year-old female with asthma, cough, wheezing, which reproducible chest wall tenderness, no pulmonary embolus or DVT risk factors, low risk by well's criteria, perc negative [place] improved after appropriate therapy, will be discharged with pain medication , nausea medication, albuterol, steroids, return precautions reviewed. Most likely had posttussive emesis. Patient observed in the ER for hours without clinical decompensation, she is noted to be playing on a cellular phone. Critical care attestation.: If time is entered above; I have spent that time in minutes in the direct care of this critically ill patient, excluding procedure time. ED Disposition Clinical Impression: Asthma exacerbation Disposition: DC-01 TO HOME OR SELFCARE Is pt being admited?: No Does the pt Need Aspirin: No Condition: Stable Instructions: Asthma (ED) Additional Instructions: Take the medications as needed/directed. Follow-up with the primary care doctor within the next 2-3 weeks. Return to the ER right away with new pain, worsened pain, migration of pain, chills, intractable nausea or vomiting, confusion, inability to tolerate liquid feeds. Referrals: MILDRED MAI MD [Primary Care Provider] - 3-5 Days
--- NOTE | 2017-05-08 00:21 | XRay Report ---
FINAL REPORT EXAM: XR CHEST ROUTINE 2V HISTORY: chest pain cough COMPARISON: None available. FINDINGS:: Frontal and lateral views of the chest obtained. Cardiac silhouette is within normal limits. No focal consolidation or effusion. No pneumothorax. Visualized bony thorax is grossly intact. IMPRESSION:: No acute findings.
[2017-05-08 01:58] VITALS: BP 110/74
== END 2017-05-08 01:57 | disposition home or self-care (01) ==
LOC: ED 18:22
DX: J45.901 Unspecified asthma with (acute) exacerbation (principal); F17.200 Nicotine dependence, unspecified, uncomplicated; Z90.49 Acquired absence of other specified parts of digestive tract; Z98.51 Tubal ligation status
CPT/HCPCS: 71046; 93005; 93010; 94640; 99283; J7512; Q0162

== ENCOUNTER 2017-09-26 09:43 | Emergency (ER) | payer SELFPAY ==
[2017-09-26 10:03] VITALS: BP 118/81
[2017-09-26] MEDS ORDERED: ATROVENT IH ONE (10:15)
[2017-09-26] MEDS ORDERED: PROVENTIL IH ONE (10:15)
[2017-09-26] MEDS ORDERED: DELTASONE PO ONE (10:16)
--- NOTE | 2017-09-26 10:28 | Emergency Department Report ---
Blank Doc - Documentation Documentation: Patient is a 32-year-old female past medical history of asthma who is presenting with shortness of breath. Patient states she's had a cough for several days with some left-sided chest discomfort. Patient also has a wheeze she has used her albuterol inhaler with no improvement of symptoms. Focused physical exam patient has diffuse wheeze present. Patient is able to speak in full sentences. Patient able to a treatment room for an hour-long neb oral steroids and a chest x-ray.
--- NOTE | 2017-09-26 10:49 | Emergency Department Report ---
ED Asthma HPI - General Chief Complaint: Adult Asthma Stated Complaint: LEFT SIDE PAIN/ASTHMA Time Seen by Provider: 09/26/17 10:13 Source: patient Mode of arrival: Ambulatory Limitations: No Limitations - History of Present Illness Initial Comments: This is a 32-year-old female nontoxic, well nourished in appearance, no acute signs of distress presents to the ED with c/o of acute on chronic asthma exacerbation. Patient stated she took albuerol medication with no relief this morning. Patient also stated has productive cough that is green colored mucus. Patient denies any sick contact. Patient denies any recent travels, long car , recent hospital stays. Patient denies any calf pain or calf tenderness. Patient denies any chest pain, short of breath, fever, chills, nausea, vomiting , hemoptysis, numbness, tingling, headache or stiff neck. Past medical history includes asthma. MD Complaint: "asthma attack", shortness of breath, wheezing -: days(s) (1) Asthma History: childhood onset Severity: mild Context: none known Associated Symptoms: productive cough Treatments Prior to Arrival: inhaled bronchodilator - Related Data Current Asthma Therapy: inhaled bronchodilator Previous Rx's Medication Instructions Recorded Last Taken Type Clindamycin [Clindamycin CAP] 600 mg PO Q8H #30 capsule 11/02/16 Unknown Rx HYDROcodone/APAP 5-325 [[place] 1 each PO Q6HR PRN #12 tablet 11/02/16 Unknown Rx 5/325] Ibuprofen [Motrin] 600 mg PO Q8H PRN #15 tablet 11/02/16 Unknown Rx Doxycycline Hyclate [Doxycycline 100 mg PO Q12HR #20 tab 01/05/17 Unknown Rx Hyclate TAB] Ofloxacin 0.3% [Ocuflox] 2 drops OP Q4HR #1 bottle 01/05/17 Unknown Rx methylPREDNISolone [Medrol] 4 mg PO DAILY 6 Days #1 tab.ds.pk 01/05/17 Unknown Rx Cephalexin [Keflex] 500 mg PO BID #20 capsule 04/26/17 Unknown Rx Ibuprofen 800 mg PO Q8H PRN #30 tablet 04/26/17 Unknown Rx Albuterol Sulfate [Proair 90 mcg IH Q4HR PRN #2 aer.pow.ba 05/08/17 Unknown Rx Respiclick] Benzonatate [Tessalon Perles] 100 mg PO Q8HR PRN #30 capsule 05/08/17 Unknown Rx Ibuprofen [Motrin] 600 mg PO Q8H PRN #30 tablet 05/08/17 Unknown Rx Ondansetron [Zofran Odt] 4 mg PO Q8HR PRN #20 tab.rapdis 05/08/17 Unknown Rx predniSONE [Deltasone] 40 mg PO QDAY #8 tab 05/08/17 Unknown Rx ALBUTEROL Inhaler [ProAir HFA 2 puff IH QID PRN #1 inhalation 09/26/17 Unknown Rx Inhaler] Azithromycin [Zithromax Z-JANINE] 250 mg PO DAILY #6 tablet 09/26/17 Unknown Rx Prednisone [predniSONE 10 mg 10 mg PO .TAPER #1 tab.ds.pk 09/26/17 Unknown Rx (6-Day Pack, 21 Tabs)] Allergies Allergy/AdvReac Type Severity Reaction Status Date / Time No Known Allergies Allergy Verified 11/02/16 05:56 ED Review of Systems ROS: Stated complaint: LEFT SIDE PAIN/ASTHMA Other details as noted in HPI Constitutional: denies: chills, fever Eyes: denies: eye pain, eye discharge, vision change ENT: denies: ear pain, throat pain Respiratory: cough, shortness of breath, wheezing Cardiovascular: denies: chest pain, palpitations Endocrine: no symptoms reported Gastrointestinal: denies: abdominal pain, nausea, diarrhea Genitourinary: denies: urgency, dysuria, discharge Musculoskeletal: denies: back pain, joint swelling, arthralgia Skin: denies: rash, lesions Neurological: denies: headache, weakness, paresthesias Psychiatric: denies: anxiety, depression Hematological/Lymphatic: denies: easy bleeding, easy bruising ED Past Medical Hx - Past Medical History Hx Asthma: Yes Additional medical history: recurrent skin cyst - Surgical History Hx Appendectomy: Yes Additional Surgical History: X 2, appendectomy,tubiligation - Social History Smoking Status: Current Every Day Smoker Substance Use Type: Alcohol - Medications Home Medications: Home Medications Medication Instructions Recorded Confirmed Last Taken Type Clindamycin [Clindamycin CAP] 600 mg PO Q8H #30 capsule 11/02/16 Unknown Rx HYDROcodone/APAP 5-325 [[place] 1 each PO Q6HR PRN #12 tablet 11/02/16 Unknown Rx 5/325] Ibuprofen [Motrin] 600 mg PO Q8H PRN #15 tablet 11/02/16 Unknown Rx Doxycycline Hyclate [Doxycycline 100 mg PO Q12HR #20 tab 01/05/17 Unknown Rx Hyclate TAB] Ofloxacin 0.3% [Ocuflox] 2 drops OP Q4HR #1 bottle 01/05/17 Unknown Rx methylPREDNISolone [Medrol] 4 mg PO DAILY 6 Days #1 tab.ds.pk 01/05/17 Unknown Rx Cephalexin [Keflex] 500 mg PO BID #20 capsule 04/26/17 Unknown Rx Ibuprofen 800 mg PO Q8H PRN #30 tablet 04/26/17 Unknown Rx Albuterol Sulfate [Proair 90 mcg IH Q4HR PRN #2 aer.pow.ba 05/08/17 Unknown Rx Respiclick] Benzonatate [Tessalon Perles] 100 mg PO Q8HR PRN #30 capsule 05/08/17 Unknown Rx Ibuprofen [Motrin] 600 mg PO Q8H PRN #30 tablet 05/08/17 Unknown Rx Ondansetron [Zofran Odt] 4 mg PO Q8HR PRN #20 tab.rapdis 05/08/17 Unknown Rx predniSONE [Deltasone] 40 mg PO QDAY #8 tab 05/08/17 Unknown Rx ALBUTEROL Inhaler [ProAir HFA 2 puff IH QID PRN #1 inhalation 09/26/17 Unknown Rx Inhaler] Azithromycin [Zithromax Z-JANINE] 250 mg PO DAILY #6 tablet 09/26/17 Unknown Rx Prednisone [predniSONE 10 mg 10 mg PO .TAPER #1 tab.ds.pk 09/26/17 Unknown Rx (6-Day Pack, 21 Tabs)] ED Physical Exam - General Limitations: No Limitations General appearance: alert, in no apparent distress - Head Head exam: Present: atraumatic, normocephalic - Eye Eye exam: Present: normal appearance Pupils: Present: normal accommodation - ENT ENT exam: Present: normal exam, mucous membranes moist - Neck Neck exam: Present: normal inspection, full ROM. Absent: tenderness, meningismus, lymphadenopathy - Respiratory Respiratory exam: Present: normal lung sounds bilaterally, wheezes (bilateral upper and lower lobes). Absent: respiratory distress, rales, rhonchi, stridor, chest wall tenderness, accessory muscle use, decreased breath sounds, prolonged expiratory - Cardiovascular Cardiovascular Exam: Present: regular rate, normal rhythm, normal heart sounds. Absent: bradycardia, tachycardia, irregular rhythm, systolic murmur, diastolic murmur, rubs, gallop - GI/Abdominal GI/Abdominal exam: Present: soft, normal bowel sounds. Absent: distended, tenderness, guarding, rebound, rigid, diminished bowel sounds - Rectal Rectal exam: Present: deferred - Extremities Exam Extremities exam: Present: normal inspection, full ROM, normal capillary refill - Back Exam Back exam: Present: normal inspection, full ROM - Neurological Exam Neurological exam: Present: alert, oriented X3, normal gait - Psychiatric Psychiatric exam: Present: normal affect, normal mood - Skin Skin exam: Present: warm, dry, intact, normal color. Absent: rash ED Course Vital Signs 09/26/17 09:59 Temperature 98.3 F Pulse Rate 89 Respiratory 20 Rate Blood Pressure 118/81 [Left] O2 Sat by Pulse 97 Oximetry - Reevaluation(s) Reevaluation #1: 09/26/17 10:52 Patient is speaking in full sentences with no signs of distress noted. ED Medical Decision Making - Medical Decision Making This is a 32-year-old female that presents with asthma exacerbation. Patient is stable and was examined by me and Dr. Matias. Chest x-ray has been obtained and dictated by the radiologist within normal limits. Patient is notified of the x-ray report with no questions noted by the patient. Patient did receive DuoNeb and steroids in the ED which patient the symptoms has resolved and subsided. Posttreatment and there is no wheezing upon auscultation. Patient is discharged with zpak, albuterol and prednisone. Patient was referred to Follow-up with a primary care doctor in 3-5 days or if symptoms worsen and continue return to emergency room as soon as possible. At time of discharge, the patient does not seem toxic or ill in appearance. No acute signs of distress noted. Patient agrees to discharge treatment plan of care. No further questions noted by the patient. This chart is dictated with using [employer]ictation [employer] Critical care attestation.: If time is entered above; I have spent that time in minutes in the direct care of this critically ill patient, excluding procedure time. ED Disposition Clinical Impression: Bronchitis Acute asthma exacerbation Qualifiers: Asthma severity: mild Asthma persistence: intermittent Qualified Code(s): J45.21 - Mild intermittent asthma with (acute) exacerbation Disposition: DC-01 TO HOME OR SELFCARE Is pt being admited?: No Does the pt Need Aspirin: No Condition: Stable Instructions: Acute Bronchitis (ED), Asthma (ED) Additional Instructions: Follow-up with a primary care doctor in 3-5 days or if symptoms worsen and continue return to emergency room as soon as possible. Prescriptions: ALBUTEROL Inhaler [ProAir HFA Inhaler] 2 puff IH QID PRN #1 inhalation PRN Reason: Shortness Of Breath Azithromycin [Zithromax Z-JANINE] 250 mg PO DAILY #6 tablet Prednisone [predniSONE 10 mg (6-Day Pack, 21 Tabs)] 10 mg PO .TAPER #1 tab.ds.pk Referrals: CARRI ORTIZ MD [Staff Physician] - 3-5 Days [facility] [Outside] - 3-5 Days PRIMARY CARE, [Primary Care Provider] - 3-5 Days Forms: Work/School Release Form(ED)
--- NOTE | 2017-09-26 10:54 | XRay Report ---
CHEST 2 VIEWS INDICATION: Wheeze, left-sided chest pain. COMPARISON: 05/07/2017. FINDINGS: PA and lateral chest radiographs demonstrate normal cardiomediastinal silhouette. Clear lungs. Intact bones. CONCLUSION: No acute disease in the chest. Thank you for the opportunity to participate in this patient's care.
== END 2017-09-26 13:23 | disposition home or self-care (01) ==
LOC: ED 09:43
DX: J45.21 Mild intermittent asthma with (acute) exacerbation (principal); F17.200 Nicotine dependence, unspecified, uncomplicated; Z90.89 Acquired absence of other organs; Z98.51 Tubal ligation status
CPT/HCPCS: 71046; 94640; 99283; J7512

== ENCOUNTER 2018-02-27 00:59 | Emergency (ER) | payer SELFPAY ==
[2018-02-27] MEDS ORDERED: XOPENEX IH ONE (02:03)
[2018-02-27] MEDS ORDERED: ATROVENT IH ONE (02:03)
--- NOTE | 2018-02-27 02:09 | Emergency Department Report ---
ED Asthma HPI - General Chief Complaint: Adult Asthma Stated Complaint: ASTHMA Time Seen by Provider: 02/27/18 01:58 Source: patient, family Mode of arrival: Stretcher Limitations: No Limitations - History of Present Illness Initial Comments: Patient is a 32 years old female with history of asthma. Patient brought to the emergency room via EMS after an episode of asthma attack started this evening. Patient stated that she's been having shortness of breath and wheezing. Patient denied any fever, chest pain, nausea or vomiting. Patient stated that she use albuterol as needed. She stated that she does not have frequent attack. MD Complaint: "asthma attack", shortness of breath, wheezing -: Sudden Asthma History: childhood onset Severity: moderate Treatments Prior to Arrival: inhaled bronchodilator - Related Data Current Asthma Therapy: inhaled bronchodilator Previous Rx's Medication Instructions Recorded Last Taken Type Clindamycin [Clindamycin CAP] 600 mg PO Q8H #30 capsule 11/02/16 Unknown Rx HYDROcodone/APAP 5-325 [[place] 1 each PO Q6HR PRN #12 tablet 11/02/16 Unknown Rx 5/325] Ibuprofen [Motrin] 600 mg PO Q8H PRN #15 tablet 11/02/16 Unknown Rx Doxycycline Hyclate [Doxycycline 100 mg PO Q12HR #20 tab 01/05/17 Unknown Rx Hyclate TAB] Ofloxacin 0.3% [Ocuflox] 2 drops OP Q4HR #1 bottle 01/05/17 Unknown Rx methylPREDNISolone [Medrol] 4 mg PO DAILY 6 Days #1 tab.ds.pk 01/05/17 Unknown Rx Cephalexin [Keflex] 500 mg PO BID #20 capsule 04/26/17 Unknown Rx Ibuprofen 800 mg PO Q8H PRN #30 tablet 04/26/17 Unknown Rx Albuterol Sulfate [Proair 90 mcg IH Q4HR PRN #2 aer.pow.ba 05/08/17 Unknown Rx Respiclick] Benzonatate [Tessalon Perles] 100 mg PO Q8HR PRN #30 capsule 05/08/17 Unknown Rx Ibuprofen [Motrin] 600 mg PO Q8H PRN #30 tablet 05/08/17 Unknown Rx Ondansetron [Zofran Odt] 4 mg PO Q8HR PRN #20 tab.rapdis 05/08/17 Unknown Rx predniSONE [Deltasone] 40 mg PO QDAY #8 tab 05/08/17 Unknown Rx ALBUTEROL Inhaler (OR & NICU) 2 puff IH QID PRN #1 inhalation 09/26/17 Unknown Rx [ProAir HFA Inhaler] Azithromycin [Zithromax Z-JANINE] 250 mg PO DAILY #6 tablet 09/26/17 Unknown Rx Prednisone [predniSONE 10 mg 10 mg PO .TAPER #1 tab.ds.pk 09/26/17 Unknown Rx (6-Day Pack, 21 Tabs)] Allergies Allergy/AdvReac Type Severity Reaction Status Date / Time No Known Allergies Allergy Verified 11/02/16 05:56 ED Review of Systems ROS: Stated complaint: ASTHMA Other details as noted in HPI Comment: All other systems reviewed and negative Constitutional: denies: chills, fever Respiratory: shortness of breath, SOB at rest, wheezing. denies: cough, orthopnea, stridor Cardiovascular: denies: chest pain, palpitations Gastrointestinal: denies: abdominal pain, nausea, vomiting, diarrhea, c onstipation, hematemesis, melena ED Past Medical Hx - Past Medical History Hx Asthma: Yes Additional medical history: recurrent skin cyst - Surgical History Hx Appendectomy: Yes Additional Surgical History: X 2, appendectomy,tubiligation - Social History Smoking Status: Current Every Day Smoker Substance Use Type: Alcohol - Medications Home Medications: Home Medications Medication Instructions Recorded Confirmed Last Taken Type Clindamycin [Clindamycin CAP] 600 mg PO Q8H #30 capsule 11/02/16 Unknown Rx HYDROcodone/APAP 5-325 [[place] 1 each PO Q6HR PRN #12 tablet 11/02/16 Unknown Rx 5/325] Ibuprofen [Motrin] 600 mg PO Q8H PRN #15 tablet 11/02/16 Unknown Rx Doxycycline Hyclate [Doxycycline 100 mg PO Q12HR #20 tab 01/05/17 Unknown Rx Hyclate TAB] Ofloxacin 0.3% [Ocuflox] 2 drops OP Q4HR #1 bottle 01/05/17 Unknown Rx methylPREDNISolone [Medrol] 4 mg PO DAILY 6 Days #1 tab.ds.pk 01/05/17 Unknown Rx Cephalexin [Keflex] 500 mg PO BID #20 capsule 04/26/17 Unknown Rx Ibuprofen 800 mg PO Q8H PRN #30 tablet 04/26/17 Unknown Rx Albuterol Sulfate [Proair 90 mcg IH Q4HR PRN #2 aer.pow.ba 05/08/17 Unknown Rx Respiclick] Benzonatate [Tessalon Perles] 100 mg PO Q8HR PRN #30 capsule 05/08/17 Unknown Rx Ibuprofen [Motrin] 600 mg PO Q8H PRN #30 tablet 05/08/17 Unknown Rx Ondansetron [Zofran Odt] 4 mg PO Q8HR PRN #20 tab.rapdis 05/08/17 Unknown Rx predniSONE [Deltasone] 40 mg PO QDAY #8 tab 05/08/17 Unknown Rx ALBUTEROL Inhaler (OR & NICU) 2 puff IH QID PRN #1 inhalation 09/26/17 Unknown Rx [ProAir HFA Inhaler] Azithromycin [Zithromax Z-JANINE] 250 mg PO DAILY #6 tablet 09/26/17 Unknown Rx Prednisone [predniSONE 10 mg 10 mg PO .TAPER #1 tab.ds.pk 09/26/17 Unknown Rx (6-Day Pack, 21 Tabs)] ED Physical Exam - General Limitations: No Limitations General appearance: alert, in distress - Head Head exam: Present: atraumatic, normocephalic, normal inspection - Eye Eye exam: Present: normal appearance - ENT ENT exam: Present: normal exam, normal orophraynx, mucous membranes moist - Neck Neck exam: Present: normal inspection, full ROM. Absent: tenderness, meningismus, lymphadenopathy, thyromegaly - Respiratory Respiratory exam: Present: respiratory distress, wheezes, rhonchi. Absent: rales, stridor, accessory muscle use, decreased breath sounds, prolonged expiratory - Cardiovascular Cardiovascular Exam: Present: regular rate, normal heart sounds - GI/Abdominal GI/Abdominal exam: Present: soft, normal bowel sounds. Absent: distended, tenderness, guarding, rebound, rigid, organomegaly, mass, bruit, pulsatile mass, hernia - Extremities Exam Extremities exam: Present: normal inspection, full ROM, normal capillary refill. Absent: pedal edema, calf tenderness - Back Exam Back exam: Present: normal inspection, full ROM. Absent: tenderness, CVA tenderness (R), CVA tenderness (L), muscle spasm, paraspinal tenderness, vertebral tenderness - Neurological Exam Neurological exam: Present: alert, oriented X3, CN II-XII intact, normal gait, reflexes normal - Skin Skin exam: Present: warm, intact, normal color ED Course Vital Signs 02/27/18 02/27/18 02/27/18 01:08 01:12 01:16 Temperature 98.2 F Pulse Rate 110 H 108 H 111 H Respiratory 18 21 19 Rate Blood Pressure 122/71 O2 Sat by Pulse 97 100 100 Oximetry 02/27/18 02/27/18 02/27/18 01:30 01:46 02:01 Temperature Pulse Rate 104 H 98 H 102 H Respiratory 18 20 32 H Rate Blood Pressure O2 Sat by Pulse 100 100 100 Oximetry 02/27/18 02/27/18 02/27/18 02:15 02:31 02:45 Temperature Pulse Rate 95 H 93 H 93 H Respiratory 14 16 16 Rate Blood Pressure O2 Sat by Pulse 99 99 99 Oximetry 02/27/18 03:00 Temperature Pulse Rate 94 H Respiratory 15 Rate Blood Pressure 103/69 O2 Sat by Pulse 100 Oximetry ED Medical Decision Making - Lab Data Result diagrams: 02/27/18 02:08 02/27/18 02:08 - Radiology Data Radiology results: report reviewed Referring Physician: EVY OLMOS Patient Name: PATRICIA GORDILLO Date of : 1985 Sex: Female Report Date: 2018-02-27 Report Status: Finalized Findings [address] [address] XRay Report Signed Patient: PATRICIA GORDILLO MR#: [id number] : 1985 Acct:[id number] Age/Sex: 32 / F ADM Date: 02/27/18 Loc: ED Attending Dr: Ordering Physician: EVY OLMOS Date of Service: 02/27/18 Procedure(s): XR chest 1V ap Accession Number(s): [id number] cc: EVY OLMOS Fluoro Time In Minutes: FINAL REPORT EXAM: XR CHEST 1V AP HISTORY: Asthma TECHNIQUE: A portable upright view the chest was obtained and compared to the study of 05/07/2017. FINDINGS: The heart size and mediastinum appear normal. The lungs are clear. Pleural fluid is not seen. The bones soft tissues appear normal. IMPRESSION: Normal chest. Transcribed By: RB Dictated By: VERONICA ROSSI MD Electronically Authenticated By: VERONICA ROSSI MD Signed Date/Time: 02/27/18224 DD/ 5 TD/TT: 02/27/18225 - Medical Decision Making Patient stated that she is feeling much better. Chest x-ray is negative. Lungs clear with no wheezing. I will start patient on prednisone and I advised the patient to follow-up with his her primary care physician in the next 2-3 days and to return to the ER if her symptoms return. Critical care attestation.: If time is entered above; I have spent that time in minutes in the direct care of this critically ill patient, excluding procedure time. ED Disposition Clinical Impression: Asthma exacerbation Disposition: TO HOME OR SELFCARE Is pt being admited?: No Condition: Stable Instructions: Asthma (ED) Referrals: JUAN GUERRERO MD [Primary Care Provider] - 3-5 Days
--- NOTE | 2018-02-27 02:25 | XRay Report ---
FINAL REPORT EXAM: XR CHEST 1V AP HISTORY: Asthma TECHNIQUE: A portable upright view the chest was obtained and compared to the study of 05/07/2017. FINDINGS: The heart size and mediastinum appear normal. The lungs are clear. Pleural fluid is not seen. The bon es soft tissues appear normal. IMPRESSION: Normal chest.
[2018-02-27 02:30] LABS: Hematocrit 36.9 % (30.3-42.9); Hemoglobin 12.2 gm/dl (10.1-14.3); Mean Corpuscular HGB Conc 33 % (30-34); Mean Corpuscular Volume 89 fl (79-97); Platelet Count 255 K/mm3 (140-440); Red Blood Count 4.17 M/mm3 (3.65-5.03); Red Cell Distribution Width 16.5 % (13.2-15.2)
[2018-02-27 02:48] LABS: BUN/Creatinine Ratio 11; Blood Urea Nitrogen 10 mg/dL (7-17); Calcium 8.8 mg/dL (8.4-10.2); Hemolysis Index 9
[2018-02-27 03:16] LABS: Band Neutrophils # (Manual) 0.1 K/mm3; Eosinophils % (Manual) 0 % (0.0-4.3); RBC Morphology Normal; Total Cells Counted 100
[2018-02-27 04:02] VITALS: BP 97/62
== END 2018-02-27 04:11 | disposition home or self-care (01) ==
LOC: ED 00:59
DX: J45.901 Unspecified asthma with (acute) exacerbation (principal)
CPT/HCPCS: 36415; 71045; 80048; 85007; 85025

== ENCOUNTER 2018-05-12 11:03 | Emergency (ER) | payer OTHER ==
[2018-05-12 11:16] VITALS: BP 108/58
[2018-05-12] MEDS ORDERED: NACL 0.9% 1000 ML 1,000 ML IV ONE (11:25)
--- NOTE | 2018-05-12 11:38 | Emergency Department Report ---
ED General Adult HPI - General Chief complaint: Dyspnea/Respdistress Stated complaint: WEAKNESS Time Seen by Provider: 05/12/18 11:24 Source: patient, EMS Mode of arrival: Stretcher Limitations: No Limitations - History of Present Illness Initial comments: This is a 32-year-old female who is providing limited history at this time. She admits to alcohol excess. She denies substance abuse. She was transported by EMS after she vomited and experienced an exacerbation of asthma I presume. They gave her Solu-Medrol and an albuterol neb as well as 2 g of magnesium and round. The patient states that this improved her difficulty in breathing. Patient denies any recent injury or fall or syncope. -: Gradual, hour(s) Improves with: none Associated Symptoms: denies other symptoms, cough (occasional), nausea/vomiting Treatments Prior to Arrival: other - Related Data Previous Rx's Medication Instructions Recorded Last Taken Type Clindamycin [Clindamycin CAP] 600 mg PO Q8H #30 capsule 11/02/16 Unknown Rx HYDROcodone/APAP 5-325 [[place] 1 each PO Q6HR PRN #12 tablet 11/02/16 Unknown Rx 5/325] Ibuprofen [Motrin] 600 mg PO Q8H PRN #15 tablet 11/02/16 Unknown Rx Doxycycline Hyclate [Doxycycline 100 mg PO Q12HR #20 tab 01/05/17 Unknown Rx Hyclate TAB] Ofloxacin 0.3% [Ocuflox] 2 drops OP Q4HR #1 bottle 01/05/17 Unknown Rx methylPREDNISolone [Medrol] 4 mg PO DAILY 6 Days #1 tab.ds.pk 01/05/17 Unknown Rx Cephalexin [Keflex] 500 mg PO BID #20 capsule 04/26/17 Unknown Rx Ibuprofen 800 mg PO Q8H PRN #30 tablet 04/26/17 Unknown Rx Albuterol Sulfate [Proair 90 mcg IH Q4HR PRN #2 aer.pow.ba 05/08/17 Unknown Rx Respiclick] Benzonatate [Tessalon Perles] 100 mg PO Q8HR PRN #30 capsule 05/08/17 Unknown Rx Ibuprofen [Motrin] 600 mg PO Q8H PRN #30 tablet 05/08/17 Unknown Rx Ondansetron [Zofran Odt] 4 mg PO Q8HR PRN #20 tab.rapdis 05/08/17 Unknown Rx predniSONE [Deltasone] 40 mg PO QDAY #8 tab 05/08/17 Unknown Rx Azithromycin [Zithromax Z-JANINE] 250 mg PO DAILY #6 tablet 09/26/17 Unknown Rx Prednisone [predniSONE 10 mg 10 mg PO .TAPER #1 tab.ds.pk 09/26/17 Unknown Rx (6-Day Pack, 21 Tabs)] Prednisone [predniSONE 10 mg 10 mg PO .TAPER #1 tab.ds.pk 02/27/18 Unknown Rx (6-Day Pack, 21 Tabs)] ALBUTEROL Inhaler (OR & NICU) 2 puff IH QID PRN #1 inhalation 05/12/18 Unknown Rx [ProAir HFA Inhaler] Allergies Allergy/AdvReac Type Severity Reaction Status Date / Time No Known Allergies Allergy Verified 05/12/18 11:12 ED Review of Systems ROS: Stated complaint: WEAKNESS Other details as noted in HPI Comment: All other systems reviewed and negative (Limited secondary to mental status but patient denies other symptoms on review) Respiratory: wheezing Gastrointestinal: nausea, vomiting ED Past Medical Hx - Past Medical History Hx Asthma: Yes Additional medical history: recurrent skin cyst - Surgical History Past Surgical History?: Yes Hx Appendectomy: Yes Additional Surgical History: X 2, tubal ligation - Social History Smoking Status: Never Smoker Substance Use Type: Alcohol - Medications Home Medications: Home Medications Medication Instructions Recorded Confirmed Last Taken Type Clindamycin [Clindamycin CAP] 600 mg PO Q8H #30 capsule 11/02/16 Unknown Rx HYDROcodone/APAP 5-325 [[place] 1 each PO Q6HR PRN #12 tablet 11/02/16 Unknown Rx 5/325] Ibuprofen [Motrin] 600 mg PO Q8H PRN #15 tablet 11/02/16 Unknown Rx Doxycycline Hyclate [Doxycycline 100 mg PO Q12HR #20 tab 01/05/17 Unknown Rx Hyclate TAB] Ofloxacin 0.3% [Ocuflox] 2 drops OP Q4HR #1 bottle 01/05/17 Unknown Rx methylPREDNISolone [Medrol] 4 mg PO DAILY 6 Days #1 tab.ds.pk 01/05/17 Unknown Rx Cephalexin [Keflex] 500 mg PO BID #20 capsule 04/26/17 Unknown Rx Ibuprofen 800 mg PO Q8H PRN #30 tablet 04/26/17 Unknown Rx Albuterol Sulfate [Proair 90 mcg IH Q4HR PRN #2 aer.pow.ba 05/08/17 Unknown Rx Respiclick] Benzonatate [Tessalon Perles] 100 mg PO Q8HR PRN #30 capsule 05/08/17 Unknown Rx Ibuprofen [Motrin] 600 mg PO Q8H PRN #30 tablet 05/08/17 Unknown Rx Ondansetron [Zofran Odt] 4 mg PO Q8HR PRN #20 tab.rapdis 05/08/17 Unknown Rx predniSONE [Deltasone] 40 mg PO QDAY #8 tab 05/08/17 Unknown Rx Azithromycin [Zithromax Z-JANINE] 250 mg PO DAILY #6 tablet 09/26/17 Unknown Rx Prednisone [predniSONE 10 mg 10 mg PO .TAPER #1 tab.ds.pk 09/26/17 Unknown Rx (6-Day Pack, 21 Tabs)] Prednisone [predniSONE 10 mg 10 mg PO .TAPER #1 tab.ds.pk 02/27/18 Unknown Rx (6-Day Pack, 21 Tabs)] ALBUTEROL Inhaler (OR & NICU) 2 puff IH QID PRN #1 inhalation 05/12/18 Unknown Rx [ProAir HFA Inhaler] ED Physical Exam - General Limitations: No Limitations General appearance: alert, in no apparent distress - Head Head exam: Present: atraumatic, normocephalic - Eye Eye exam: Present: normal appearance. Absent: scleral icterus - ENT ENT exam: Present: mucous membranes moist - Neck Neck exam: Present: normal inspection. Absent: tenderness, meningismus - Respiratory Respiratory exam: Present: normal lung sounds bilaterally. Absent: respiratory distress - Cardiovascular Cardiovascular Exam: Present: normal rhythm, tachycardia. Absent: systolic murmur, diastolic murmur, rubs, gallop - GI/Abdominal GI/Abdominal exam: Present: soft, normal bowel sounds. Absent: distended, tenderness, guarding, rebound, rigid - Extremities Exam Extremities exam: Present: normal inspection - Back Exam Back exam: Present: normal inspection - Neurological Exam Neurological exam: Present: altered (lethargic), oriented X3, CN II-XII intact, other (no lateralizing signs). Absent: motor sensory deficit - Psychiatric Psychiatric exam: Present: normal mood, flat affect - Skin Skin exam: Present: warm, dry, intact, normal color. Absent: rash ED Course Vital Signs 05/12/18 11:12 Temperature 98.4 F Pulse Rate 117 H Respiratory 18 Rate Blood Pressure 108/58 O2 Sat by Pulse 99 Oximetry - Reevaluation(s) Reevaluation #1: Patient was fully ambulatory to the bathroom. Her mental status has improved. Her drug screen was positive for cannabinoid and alcohol level was 0.06. She stated that she was ready to go. She was discharged in improved condition 05/12/18 13:36 ED Medical Decision Making - Lab Data Result diagrams: 05/12/18 12:33 05/12/18 12:33 Laboratory Results - last 24 hr 05/12/18 05/12/18 05/12/18 12:33 12:33 12:33 WBC 6.4 RBC 3.94 Hgb 11.5 Hct 34.6 MCV 88 MCH 29 MCHC 33 RDW 15.6 H Plt Count 222 Lymph % (Auto) 6.8 L [place] % (Auto) 2.6 Eos % (Auto) 0.6 Baso % (Auto) 0.7 Lymph # 0.4 L [place] # 0.2 Eos # 0.0 Baso # 0.0 Seg Neutrophils % 89.3 H Seg Neutrophils # 5.7 PT 13.6 INR 0.98 APTT 29.3 Sodium 138 Potassium 4.3 Chloride 105.8 Carbon Dioxide 19 L Anion Gap 18 BUN 8 Creatinine 0.6 L Estimated GFR > 60 BUN/Creatinine Ratio 13 Glucose 87 Calcium 7.9 L Magnesium 2.20 Total Bilirubin Direct Bilirubin Indirect Bilirubin AST ALT Alkaline Phosphatase Total Protein Albumin Albumin/Globulin Ratio Urine Color Urine Turbidity Urine pH Ur Specific [place] Urine Protein Urine Glucose (UA) Urine Ketones Urine Blood Urine Nitrite Urine Bilirubin Urine Urobilinogen Ur Leukocyte Esterase Urine WBC (Auto) Urine RBC (Auto) U Epithel Cells (Auto) Urine Mucus Urine HCG, Qual Urine Opiates Screen Urine Methadone Screen Ur Barbiturates Screen Ur Phencyclidine Scrn Ur Amphetamines Screen U Benzodiazepines Scrn Urine Cocaine Screen U Marijuana (THC) Screen Plasma/Serum Alcohol 05/12/18 05/12/18 05/12/18 12:33 12:33 12:52 WBC RBC Hgb Hct MCV MCH MCHC RDW Plt Count Lymph % (Auto) [place] % (Auto) Eos % (Auto) Baso % (Auto) Lymph # [place] # Eos # Baso # Seg Neutrophils % Seg Neutrophils # PT INR APTT Sodium Potassium Chloride Carbon Dioxide Anion Gap BUN Creatinine Estimated GFR BUN/Creatinine Ratio Glucose Calcium Magnesium Total Bilirubin 0.20 Direct Bilirubin < 0.2 Indirect Bilirubin 0.0 AST 22 ALT 16 Alkaline Phosphatase 46 Total Protein 6.8 Albumin 4.0 Albumin/Globulin Ratio 1.4 Urine Color Yellow Urine Turbidity Clear Urine pH 5.0 Ur Specific [place] 1.025 Urine Protein <15 mg/dl Urine Glucose (UA) Neg Urine Ketones 20 Urine Blood Neg Urine Nitrite Neg Urine Bilirubin Neg Urine Urobilinogen < 2.0 Ur Leukocyte Esterase Neg Urine WBC (Auto) 1.0 Urine RBC (Auto) 5.0 U Epithel Cells (Auto) 1.0 Urine Mucus Few Urine HCG, Qual Negative Urine Opiates Screen Urine Methadone Screen Ur Barbiturates Screen Ur Phencyclidine Scrn Ur Amphetamines Screen U Benzodiazepines Scrn Urine Cocaine Screen U Marijuana (THC) Screen Plasma/Serum Alcohol 0.06 05/12/18 12:52 WBC RBC Hgb Hct MCV MCH MCHC RDW Plt Count Lymph % (Auto) [place] % (Auto) Eos % (Auto) Baso % (Auto) Lymph # [place] # Eos # Baso # Seg Neutrophils % Seg Neutrophils # PT INR APTT Sodium Potassium Chloride Carbon Dioxide Anion Gap BUN Creatinine Estimated GFR BUN/Creatinine Ratio Glucose Calcium Magnesium Total Bilirubin Direct Bilirubin Indirect Bilirubin AST ALT Alkaline Phosphatase Total Protein Albumin Albumin/Globulin Ratio Urine Color Urine Turbidity Urine pH Ur Specific [place] Urine Protein Urine Glucose (UA) Urine Ketones Urine Blood Urine Nitrite Urine Bilirubin Urine Urobilinogen Ur Leukocyte Esterase Urine WBC (Auto) Urine RBC (Auto) U Epithel Cells (Auto) Urine Mucus Urine HCG, Qual Urine Opiates Screen Presumptive negative Urine Methadone Screen Presumptive negative Ur Barbiturates Screen Presumptive negative Ur Phencyclidine Scrn Presumptive negative Ur Amphetamines Screen Presumptive negative U Benzodiazepines Scrn Presumptive negative Urine Cocaine Screen Presumptive negative U Marijuana (THC) Screen Presumptive positive Plasma/Serum Alcohol Critical care attestation.: If time is entered above; I have spent that time in minutes in the direct care of this critically ill patient, excluding procedure time. ED Disposition Clinical Impression: Asthma exacerbation Qualifiers: Asthma severity: mild Asthma persistence: intermittent Qualified Code(s): J45.21 - Mild intermittent asthma with (acute) exacerbation Altered mental status Qualifiers: Altered mental status type: somnolence Qualified Code(s): R40.0 - Somnolence Disposition: DC-09 OP ADMIT IP TO THIS HOSP Is pt being admited?: No Does the pt Need Aspirin: No Condition: Stable Instructions: Asthma (ED) Additional Instructions: Follow-up with your primary care physician. If you do not have one, see referral. Prescriptions: ALBUTEROL Inhaler (OR & NICU) [ProAir HFA Inhaler] 2 puff IH QID PRN #1 inh alation PRN Reason: Shortness Of Breath Referrals: NANCY RICO MD [Primary Care Provider] - 3-5 Days Time of Disposition: 13:37
[2018-05-12 12:51] LABS: Basophils % (Auto) 0.7 % (0.0-1.8); Eosinophils % (Auto) 0.6 % (0.0-4.3); Hematocrit 34.6 % (30.3-42.9); Hemoglobin 11.5 gm/dl (10.1-14.3); Lymphocytes # (Auto) 0.4 K/mm3 (1.2-5.4); Lymphocytes % (Auto) 6.8 % (13.4-35.0); Mean Corpuscular HGB Conc 33 % (30-34); Mean Corpuscular Volume 88 fl (79-97); Monocytes # (Auto) 0.2 K/mm3 (0.0-0.8); Monocytes % (Auto) 2.6 % (0.0-7.3); Platelet Count 222 K/mm3 (140-440); Red Blood Count 3.94 M/mm3 (3.65-5.03); Red Cell Distribution Width 15.6 % (13.2-15.2)
[2018-05-12 13:02] LABS: INR 0.98 (0.87-1.13)
[2018-05-12 13:03] LABS: Partial Thromboplastin Time 29.3 Sec. (24.2-36.6)
[2018-05-12 13:11] LABS: BUN/Creatinine Ratio 13; Blood Urea Nitrogen 8 mg/dL (7-17); Calcium 7.9 mg/dL (8.4-10.2); Hemolysis Index 64
[2018-05-12 13:16] LABS: Amphetamine Screen,Urine PRESUMPTIVE NEGATIVE; Benzodiazepines Screen,Urine PRESUMPTIVE NEGATIVE; Cocaine Screen,Urine PRESUMPTIVE NEGATIVE; Methadone Screen,Urine PRESUMPTIVE NEGATIVE; Opiate Screen,Urine PRESUMPTIVE NEGATIVE
[2018-05-12 13:17] LABS: Bilirubin,Urine NEG (Negative); Blood,Urine NEG (Negative); Color,Urine Yellow (Yellow); HCG Qualitative,Urine Negative (Negative); Mucus,Urine FEW /HPF; Protein,Urine <15 mg/dL mg/dL (Negative); Urobilinogen,Urine < 2.0 mg/dL (<2.0)
[2018-05-12 13:17] LABS: Alanine Aminotransferase 16 units/L (7-56)
[2018-05-12 13:18] LABS: Bilirubin,Direct < 0.2 mg/dL (0-0.2)
[2018-05-12 13:32] LABS: Cannabinoid Screen,Urine PRESUMPTIVE POSITIVE
--- NOTE | 2018-05-12 14:29 | XRay Report ---
PROCEDURE: XR CHEST 1V AP TECHNIQUE: Chest, portable upright HISTORY: Dyspnea COMPARISON: 02/27/2018 FINDINGS: The heart size is normal. There is no pulmonary vascular congestion seen. Mediastinal contours are normal. Lungs are clear. There is no pleural effusion seen. There is no pneumothorax seen. IMPRESSION: No acute abnormality identified. This document is electronically signed by Sofiya Knox MD., May 12 2018 02:27:38 PM ET
== END 2018-05-12 13:41 | disposition admitted as inpatient to this hospital (09) ==
LOC: ED 11:03
DX: J45.901 Unspecified asthma with (acute) exacerbation (principal); Z90.49 Acquired absence of other specified parts of digestive tract; Z98.51 Tubal ligation status
CPT/HCPCS: 36415; 71045; 80048; 80076; 80307; 81001; 81025; 83735; 85025; 85610; 85730; 96360; 99284; G0480; J7030; 80320

== ENCOUNTER 2019-03-13 07:51 | Emergency (ER) | payer SELFPAY ==
[2019-03-13] MEDS ORDERED: methylPREDNISolone Sod Succinate 125 MG/2 ML INJ IV ONE (10:25)
[2019-03-13] MEDS ORDERED: SODIUM CHLORIDE 0.9% 1000 ML 1,000 ML IV ONE (10:25)
[2019-03-13] MEDS ORDERED: IPRATROPIUM 0.02% NEBU 2.5 ML IH ONE (10:25)
[2019-03-13] MEDS ORDERED: ONDANSETRON 4 MG/2 ML INJ IV ONE (10:25)
[2019-03-13] MEDS ORDERED: ACETAMINOPHEN 325 MG TAB PO ONE (10:25)
--- NOTE | 2019-03-13 10:27 | Emergency Department Report ---
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 She does not have a primary care doctor, reports that she is not , and has a history of bronchitis and possible asthma. Presents to the emergency room today with 3- 4 days numerous complaints, nontraumatic right-sided ear pain, no tinnitus, no d ecrease in auditory acuity, cough, chest wall pain with cough, wheezing, nausea vomiting, and "pus in my urine." All of these symptoms started 3-4 days ago. She was at work, and reports exposure to bleach, which causes her to cough, have wheezing, and nausea and vomiting. She does not take control tablets, oral contraceptives, no recent aspirin consumption, and she denies DVT and pulmonary embolism risk factors. Pains are aching, sharp and throbbing, basically constant, do not radiate anywhere, increases with palpation, decreases with rest. Has not taken Tylenol or Motrin [id number] that she can recall. -: Gradual Location: chest, abdomen, right (ear) Radiation: other Severity scale (0 -10): 10 Quality: other Consistency: other Improves with: other Worsens with: other - Related Data Previous Rx's Medication Instructions Recorded Last Taken Type Clindamycin [Clindamycin CAP] 600 mg PO Q8H #30 capsule 11/02/16 Unknown Rx HYDROcodone/APAP 5-325 [[place] 1 each PO Q6HR PRN #12 tablet 11/02/16 Unknown Rx 5/325] Ibuprofen [Motrin] 600 mg PO Q8H PRN #15 tablet 11/02/16 Unknown Rx Doxycycline Hyclate [Doxycycline 100 mg PO Q12HR #20 tab 01/05/17 Unknown Rx Hyclate TAB] Ofloxacin 0.3% [Ocuflox 0.3% opth] 2 drops OP Q4HR #1 bottle 01/05/17 Unknown Rx methylPREDNISolone [Medrol] 4 mg PO DAILY 6 Days #1 tab.ds.pk 01/05/17 Unknown Rx Cephalexin [Keflex] 500 mg PO BID #20 capsule 04/26/17 Unknown Rx Ibuprofen [Ibuprofen 800] 800 mg PO Q8H PRN #30 tablet 04/26/17 Unknown Rx Albuterol Sulfate [Proair 90 mcg IH Q4HR PRN #2 aer.pow.ba 05/08/17 Unknown Rx Respiclick] Benzonatate [Tessalon Perles] 100 mg PO Q8HR PRN #30 capsule 05/08/17 Unknown Rx Ibuprofen [Motrin] 600 mg PO Q8H PRN #30 tablet 05/08/17 Unknown Rx Ondansetron [Zofran Odt] 4 mg PO Q8HR PRN #20 tab.rapdis 05/08/17 Unknown Rx predniSONE [Deltasone] 40 mg PO QDAY #8 tab 05/08/17 Unknown Rx Azithromycin [Zithromax Z-JANINE] 250 mg PO DAILY #6 tablet 09/26/17 Unknown Rx Prednisone [predniSONE 10 mg 10 mg PO .TAPER #1 tab.ds.pk 09/26/17 Unknown Rx (6-Day Pack, 21 Tabs)] Prednisone [predniSONE 10 mg 10 mg PO .TAPER #1 tab.ds.pk 02/27/18 Unknown Rx (6-Day Pack, 21 Tabs)] Albuterol INH(or & Nicu Only) 2 puff IH QID PRN #1 inhalation 05/12/18 Unknown Rx [ProAir HFA Inhaler] Acetaminophen [Non-Aspirin Extra 500 mg PO Q6HR PRN #30 tablet 03/13/19 Unknown Rx Strength] Albuterol Sulfate [Proair 90 mcg IH Q4HR PRN #2 aer.pow.ba 03/13/19 Unknown Rx Respiclick] Amoxicillin [Amoxicillin TAB] 875 mg PO BID #20 tablet 03/13/19 Unknown Rx Ibuprofen [Motrin] 600 mg PO Q8H PRN #30 tablet 03/13/19 Unknown Rx predniSONE [Deltasone] 40 mg PO QDAY #8 tab 03/13/19 Unknown Rx Allergies Allergy/AdvReac Type Severity Reaction Status Date / Time No Known Allergies Allergy Verified 03/13/19 07:53 ED Review of Systems ROS: Stated complaint: VOMIT/RT EARACHE/CHESTPAIN Other details as noted in HPI Constitutional: malaise Eyes: denies: eye pain ENT: ear pain, congestion. denies: throat pain, epistaxis Respiratory: cough, shortness of breath, wheezing Cardiovascular: chest pain Gastrointestinal: abdominal pain, nausea Genitourinary: dysuria Musculoskeletal: myalgia Skin: denies: lesions Neurological: weakness Hematological/Lymphatic: denies: easy bleeding ED Past Medical Hx - Past Medical History Hx Asthma: Yes Additional medical history: recurrent skin cyst - Surgical History Hx Appendectomy: Yes Additional Surgical History: X 2, tubal ligation - Social History Smoking Status: Never Smoker Substance Use Type: None - Medications Home Medications: Home Medications Medication Instructions Recorded Confirmed Last Taken Type Clindamycin [Clindamycin CAP] 600 mg PO Q8H #30 capsule 11/02/16 Unknown Rx HYDROcodone/APAP 5-325 [[place] 1 each PO Q6HR PRN #12 tablet 11/02/16 Unknown Rx 5/325] Ibuprofen [Motrin] 600 mg PO Q8H PRN #15 tablet 11/02/16 Unknown Rx Doxycycline Hyclate [Doxycycline 100 mg PO Q12HR #20 tab 01/05/17 Unknown Rx Hyclate TAB] Ofloxacin 0.3% [Ocuflox 0.3% opth] 2 drops OP Q4HR #1 bottle 01/05/17 Unknown Rx methylPREDNISolone [Medrol] 4 mg PO DAILY 6 Days #1 tab.ds.pk 01/05/17 Unknown Rx Cephalexin [Keflex] 500 mg PO BID #20 capsule 04/26/17 Unknown Rx Ibuprofen [Ibuprofen 800] 800 mg PO Q8H PRN #30 tablet 04/26/17 Unknown Rx Albuterol Sulfate [Proair 90 mcg IH Q4HR PRN #2 aer.pow.ba 05/08/17 Unknown Rx Respiclick] Benzonatate [Tessalon Perles] 100 mg PO Q8HR PRN #30 capsule 05/08/17 Unknown Rx Ibuprofen [Motrin] 600 mg PO Q8H PRN #30 tablet 05/08/17 Unknown Rx Ondansetron [Zofran Odt] 4 mg PO Q8HR PRN #20 tab.rapdis 05/08/17 Unknown Rx predniSONE [Deltasone] 40 mg PO QDAY #8 tab 05/08/17 Unknown Rx Azithromycin [Zithromax Z-JANINE] 250 mg PO DAILY #6 tablet 09/26/17 Unknown Rx Prednisone [predniSONE 10 mg 10 mg PO .TAPER #1 tab.ds.pk 09/26/17 Unknown Rx (6-Day Pack, 21 Tabs)] Prednisone [predniSONE 10 mg 10 mg PO .TAPER #1 tab.ds.pk 02/27/18 Unknown Rx (6-Day Pack, 21 Tabs)] Albuterol INH(or & Nicu Only) 2 puff IH QID PRN #1 inhalation 05/12/18 Unknown Rx [ProAir HFA Inhaler] Acetaminophen [Non-Aspirin Extra 500 mg PO Q6HR PRN #30 tablet 03/13/19 Unknown Rx Strength] Albuterol Sulfate [Proair 90 mcg IH Q4HR PRN #2 aer.pow.ba 03/13/19 Unknown Rx Respiclick] Amoxicillin [Amoxicillin TAB] 875 mg PO BID #20 tablet 03/13/19 Unknown Rx Ibuprofen [Motrin] 600 mg PO Q8H PRN #30 tablet 03/13/19 Unknown Rx predniSONE [Deltasone] 40 mg PO QDAY #8 tab 03/13/19 Unknown Rx ED Physical Exam - General Limitations: No Limitations General appearance: alert, anxious, in distress - Head Head exam: Present: atraumatic, normocephalic - Eye Eye exam: Present: normal appearance, EOMI. Absent: nystagmus - ENT ENT exam: Present: normal exam, normal orophraynx (minimal erythema noted, without exudate, or tonsillar hypertrophy, the uvula is midline. Patient phonating in full sentences. Without stridor), mucous membranes moist, TM's normal bilaterally (there is left-sided tympanic membrane and erythema anteriorly and superiorly. There is right sided tympanic membrane erythema, with effusion). Absent: normal external ear exam - Neck Neck exam: Present: normal inspection, full ROM. Absent: tenderness, meningismus - Respiratory Respiratory exam: Present: wheezes, rhonchi, chest wall tenderness. Absent: respiratory distress - Cardiovascular Cardiovascular Exam: Present: regular rate, normal rhythm, normal heart sounds. Absent: bradycardia, tachycardia, irregular rhythm, systolic murmur, diastolic murmur, rubs, gallop - GI/Abdominal GI/Abdominal exam: Present: soft, normal bowel sounds. Absent: distended, tenderness, guarding, rebound, rigid, pulsatile mass - Extremities Exam Extremities exam: Present: normal inspection, full ROM, other (2+ pulses noted in the bilateral upper and lower extremities. There is no long bony tenderness. The pelvis is stable. The muscular compartments are soft. There is no palpable cord. There is no redness, pus or streaking.). Absent: pedal edema, calf tenderness - Back Exam Back exam: Present: normal inspection, full ROM. Absent: tenderness, CVA tenderness (R), CVA tenderness (L), paraspinal tenderness, vertebral tenderness - Neurological Exam Neurological exam: Present: alert, oriented X3, normal gait, other (there is no facial droop. Tongue is midline. Extraocular movements are intact bilaterally. Walking with a steady gait. Speaking in full sentences. Normal appropriate thought content. 5 out of 5 strength in 4 extremities. Sensation is intact to light touch in 4 extremities.). Absent: motor sensory deficit - Psychiatric Psychiatric exam: Present: normal affect, normal mood - Skin Skin exam: Present: warm, dry, intact, normal color. Absent: rash ED Course Vital Signs 03/13/19 03/13/19 07:54 12:37 Temperature 98.7 F 97.8 F Pulse Rate 87 76 Respiratory 20 18 Rate Blood Pressure 137/81 Blood Pressure 114/76 [Left] O2 Sat by Pulse 100 100 Oximetry - Reevaluation(s) Reevaluation #1: 03/13/19 11:02 Differential diagnosis, including but not limited to: Asthma exacerbation, pneumonia, bronchitis, pneumonitis, otitis media, costochondritis, viral syndrome, urinary tract infection Assessment and plan: 33-year-old female with chest wall pain, wheezing, cough, nausea, vomiting after bleach exposure at work, also with bilateral otitis media, and dysuria. Low risk for major adverse cardiac event as per the heart score, symptoms present for days, troponin is negative 1, this is unlikely to be atypical presentation of acute coronary syndrome, as per the [employer] clinical policy, myocardial infarction may be ruled out with one set of troponins/cardiac enzymes if symptoms present for greater than 8 hours. There are no pulmonary embolism or DVT risk factors the patient is low risk by well's criteria. We will treat her pain, give her albuterol, obtain x- ray of the chest, appropriate screening laboratory studies, and reassess once her data points have resulted. Reevaluation #2: 03/13/19 14:20 Feels improved. Wheezing resolved. Initial urinalysis is contaminated. Repeat urinalysis suggestive of urinary tract infection. Vital signs reviewed and appreciated. Suitable for discharge at this point in time. ED Medical Decision Making - Lab Data Result diagrams: 03/13/19 10:34 03/13/19 10:34 Vital Signs 03/13/19 07:54 Temperature 98.7 F Pulse Rate 87 Respiratory 20 Rate Blood Pressure 137/81 O2 Sat by Pulse 100 Oximetry Lab Results 03/13/19 Range/Units 10:34 WBC 6.9 (4.5-11.0) K/mm3 RBC 3.82 (3.65-5.03) M/mm3 Hgb 11.6 (10.1-14.3) gm/dl Hct 34.7 (30.3-42.9) % MCV 91 (79-97) fl MCH 31 (28-32) pg MCHC 34 (30-34) % RDW 15.0 (13.2-15.2) % Plt Count 245 (140-440) K/mm3 Vital Signs 03/13/19 07:54 Temperature 98.7 F Pulse Rate 87 Respiratory 20 Rate Blood Pressure 137/81 O2 Sat by Pulse 100 Oximetry Lab Results 03/13/19 03/13/19 03/13/19 Range/Units 10:34 10:34 10:34 WBC 6.9 (4.5-11.0) K/mm3 RBC 3.82 (3.65-5.03) M/mm3 Hgb 11.6 (10.1-14.3) gm/dl Hct 34.7 (30.3-42.9) % MCV 91 (79-97) fl MCH 31 (28-32) pg MCHC 34 (30-34) % RDW 15.0 (13.2-15.2) % Plt Count 245 (140-440) K/mm3 Sodium 137 (137-145) mmol/L Potassium 3.7 (3.6-5.0) mmol/L Chloride 102.7 (98-107) mmol/L Carbon Dioxide 20 L (22-30) mmol/L Anion Gap 18 mmol/L BUN 12 (7-17) mg/dL Creatinine 0.7 (0.7-1.2) mg/dL Estimated GFR > 60 ml/min BUN/Creatinine Ratio 17 % Glucose 96 (65-100) mg/dL Calcium 9.0 (8.4-10.2) mg/dL Magnesium 1.90 (1.7-2.3) mg/dL Total Bilirubin 0.20 (0.1-1.2) mg/dL AST 24 (5-40) units/L ALT 22 (7-56) units/L Alkaline Phosphatase 48 (35-129) units/L Troponin T < 0.010 (0.00-0.029) ng/mL Total Protein 7.0 (6.3-8.2) g/dL Albumin 4.1 (3.9-5) g/dL Albumin/Globulin Ratio 1.4 % Lipase 23 (13-60) units/L HCG, Quant < 2 (0-4) mIU/mL - EKG Data -: EKG Interpreted by Me EKG shows normal: sinus rhythm, axis, intervals, QRS complexes Rate: normal - EKG Data When compared to previous EKG there are: no significant change Interpretation: normal EKG, unchanged when compared t 03/13/19 11:04 The EKG today is unchanged from prior EKG from 05/07/2017. It is not consistent with STEMI. Persistent juvenile T-wave inversions noted in V2 and V3. - Radiology Data Radiology results: pending, image reviewed interpreted by me: xr chest negative Critical care attestation.: If time is entered above; I have spent that time in minutes in the direct care of this critically ill patient, excluding procedure time. ED Disposition Clinical Impression: Asthma exacerbation, UTI (urinary tract infection), Otitis media, Chest wall pain Disposition: - TO HOME OR SELFCARE Is pt being admited?: No Does the pt Need Aspirin: No Condition: Stable Instructions: Chest Pain (ED) Additional Instructions: take medications as prescribed directed/needed. Follow-up with a primary care doctor within the next 2-4 weeks. Advance diet as tolerated, drink plenty of fluids. Avoid consumption of alcohol, tobacco, marijuana. Return to emergency room right away with new, worsening or different symptoms, or symptoms not present on the initial emergency room evaluation. Cultures were sent today, and results will be available in the next 3-5 days, please have a primary care doctor contact the medical records department to obtain culture results. Referrals: JABIER CALVILLO MD [Staff Physician] - 3-5 Days [facility] [Provider Group] - 3-5 Days [facility] [Provider Group] - 3-5 Days
[2019-03-13 10:56] LABS: Hematocrit 34.7 % (30.3-42.9); Hemoglobin 11.6 gm/dl (10.1-14.3); Mean Corpuscular HGB Conc 34 % (30-34); Mean Corpuscular Volume 91 fl (79-97); Platelet Count 245 K/mm3 (140-440); Red Blood Count 3.82 M/mm3 (3.65-5.03)
[2019-03-13 11:23] LABS: Alanine Aminotransferase 22 units/L (7-56); Albumin 4.1 g/dL (3.9-5); BUN/Creatinine Ratio 17; Blood Urea Nitrogen 12 mg/dL (7-17); Hemolysis Index 10
[2019-03-13 11:55] LABS: Bilirubin,Urine 4 (Negative); Blood,Urine Negative (Negative); Color,Urine Yellow (Yellow)
[2019-03-13 11:56] LABS: Mucus,Urine 1+ /HPF
[2019-03-13 12:41] VITALS: BP 114/76
--- NOTE | 2019-03-13 13:04 | XRay Report ---
CHEST 2 VIEWS INDICATION: cough wheeze chest wall pain. COMPARISON: 05/12/2018. FINDINGS: Support devices: None. Heart: Within normal limits. Lungs/Pleura: No acute air space or interstitial disease. No significant pleural effusion. IMPRESSION: No acute findings. Signer Name: Kamaljit Daley MD Signed: 03/13/2019 1:00 PM Workstation Name: [id number]
[2019-03-13 13:36] LABS: Bilirubin,Urine NEG (Negative); Blood,Urine NEG (Negative); Color,Urine Yellow (Yellow); Protein,Urine <15 mg/dL mg/dL (Negative)
[2019-03-13 14:04] LABS: Mucus,Urine Few /HPF
== END 2019-03-13 15:07 | disposition home or self-care (01) ==
LOC: ED 07:51
DX: J45.901 Unspecified asthma with (acute) exacerbation (principal); N39.0 Urinary tract infection, site not specified; H66.91 Otitis media, unspecified, right ear; R07.89 Other chest pain; Z98.51 Tubal ligation status; Z79.899 Other long term (current) drug therapy
CPT/HCPCS: 36415; 71046; 80053; 81001; 82550; 83690; 83735; 84484; 84702; 85027; 87086; 93005; 93010; 96374; 96375; 99283; J2405; J2930; J7030

== ENCOUNTER 2019-05-02 18:04 | Emergency (ER) | payer SELFPAY ==
--- NOTE | 2019-05-02 18:26 | Emergency Department Report ---
Chief Complaint: Fever Stated Complaint: FEVER Time Seen by Provider: 05/02/19 18:23 - HPI History of Present Illness: This is a 33 y.o. F. that presents with fever, cough, and myalgia 2-3 days. Patient reports symptoms started with season change which is affecting asthma. Denies recent travel or exposure to positive COVID-19. MSE screening note: Focused history and physical exam performed. Due to findings the following was ordered: ED Disposition for MSE Condition: Stable
[2019-05-02] MEDS ORDERED: SODIUM CHLORIDE 0.9% 1000 ML 1,000 ML IV ONE (19:43)
[2019-05-02] MEDS ORDERED: ACETAMINOPHEN 325 MG TAB PO ONE (19:43)
[2019-05-02] MEDS ORDERED: ONDANSETRON 4 MG/2 ML INJ IV ONE (19:43)
[2019-05-02] MEDS ORDERED: MORPHINE 4 MG/1 ML INJ IV ONE (19:43)
[2019-05-02 20:07] LABS: Basophils % (Auto) 0.4 % (0.0-1.8); Eosinophils # (Auto) 0.1 K/mm3 (0.0-0.4); Eosinophils % (Auto) 1.7 % (0.0-4.3); Hematocrit 32.5 % (30.3-42.9); Hemoglobin 10.7 gm/dl (10.1-14.3); Lymphocytes # (Auto) 0.4 K/mm3 (1.2-5.4); Lymphocytes % (Auto) 8.6 % (13.4-35.0); Mean Corpuscular HGB Conc 33 % (30-34); Mean Corpuscular Volume 91 fl (79-97); Monocytes # (Auto) 0.2 K/mm3 (0.0-0.8); Monocytes % (Auto) 5.6 % (0.0-7.3); Platelet Count 199 K/mm3 (140-440); Red Blood Count 3.57 M/mm3 (3.65-5.03); Red Cell Distribution Width 15.1 % (13.2-15.2)
[2019-05-02 20:28] LABS: Alanine Aminotransferase 15 units/L (7-56); Albumin 3.9 g/dL (3.9-5); BUN/Creatinine Ratio 11; Blood Urea Nitrogen 9 mg/dL (7-17); Calcium 8.6 mg/dL (8.4-10.2); Hemolysis Index 5
[2019-05-02] MEDS ORDERED: POTASSIUM CHLORIDE ER 20 MEQ TAB PO ONE (20:34)
--- NOTE | 2019-05-02 20:42 | Emergency Department Report ---
ED Fever HPI - General Chief Complaint: Fever Stated Complaint: FEVER Time Seen by Provider: 05/02/19 18:23 - History of Present Illness Initial Comments: Patient is a 33-year-old female presents emergency room with complaints of a fever that began today. She has associated generalized body aches, headache, occasional dry cough, generalized abdominal discomfort. She states that she took 200 mg of ibuprofen prior to arrival. She denies any nausea, vomiting, diarrhea, chills, rhinorrhea, shortness of breath, chest pain. She denies any recent travel. She denies any known sick contacts. She states he has a past medical history of asthma. She denies any issues with her asthma currently. She denies any allergies to medications. She states her last menstrual cycle was last week. ED Review of Systems ROS: Stated complaint: FEVER Other details as noted in HPI Comment: All other systems reviewed and negative ED Past Medical Hx - Past Medical History Previous Medical History?: Yes Hx Asthma: Yes Additional medical history: recurrent skin cyst - Surgical History Past Surgical History?: Yes Hx Appendectomy: Yes Additional Surgical History: X 2, tubal ligation - Social History Smoking Status: Current Every Day Smoker Substance Use Type: None - Medications Home Medications: Home Medications Medication Instructions Recorded Confirmed Last Taken Type Clindamycin [Clindamycin CAP] 600 mg PO Q8H #30 capsule 11/02/16 Unknown Rx HYDROcodone/APAP 5-325 [[place] 1 each PO Q6HR PRN #12 tablet 11/02/16 Unknown Rx 5/325] Ibuprofen [Motrin] 600 mg PO Q8H PRN #15 tablet 11/02/16 Unknown Rx Doxycycline Hyclate [Doxycycline 100 mg PO Q12HR #20 tab 01/05/17 Unknown Rx Hyclate TAB] Ofloxacin 0.3% [Ocuflox 0.3% opth] 2 drops OP Q4HR #1 bottle 01/05/17 Unknown Rx methylPREDNISolone [Medrol] 4 mg PO DAILY 6 Days #1 tab.ds.pk 01/05/17 Unknown Rx Cephalexin [Keflex] 500 mg PO BID #20 capsule 04/26/17 Unknown Rx Ibuprofen [Ibuprofen 800] 800 mg PO Q8H PRN #30 tablet 04/26/17 Unknown Rx Albuterol Sulfate [Proair 90 mcg IH Q4HR PRN #2 aer.pow.ba 05/08/17 Unknown Rx Respiclick] Benzonatate [Tessalon Perles] 100 mg PO Q8HR PRN #30 capsule 05/08/17 Unknown Rx Ibuprofen [Motrin] 600 mg PO Q8H PRN #30 tablet 05/08/17 Unknown Rx Ondansetron [Zofran Odt] 4 mg PO Q8HR PRN #20 tab.rapdis 05/08/17 Unknown Rx predniSONE [Deltasone] 40 mg PO QDAY #8 tab 05/08/17 Unknown Rx Azithromycin [Zithromax Z-JANINE] 250 mg PO DAILY #6 tablet 09/26/17 Unknown Rx Prednisone [predniSONE 10 mg 10 mg PO .TAPER #1 tab.ds.pk 09/26/17 Unknown Rx (6-Day Pack, 21 Tabs)] Prednisone [predniSONE 10 mg 10 mg PO .TAPER #1 tab.ds.pk 02/27/18 Unknown Rx (6-Day Pack, 21 Tabs)] Albuterol INH(or & Nicu Only) 2 puff IH QID PRN #1 inhalation 05/12/18 Unknown Rx [ProAir HFA Inhaler] Acetaminophen [Non-Aspirin Extra 500 mg PO Q6HR PRN #30 tablet 03/13/19 Unknown Rx Strength] Albuterol Sulfate [Proair 90 mcg IH Q4HR PRN #2 aer.pow.ba 03/13/19 Unknown Rx Respiclick] Amoxicillin [Amoxicillin TAB] 875 mg PO BID #20 tablet 03/13/19 Unknown Rx Ibuprofen [Motrin] 600 mg PO Q8H PRN #30 tablet 03/13/19 Unknown Rx predniSONE [Deltasone] 40 mg PO QDAY #8 tab 03/13/19 Unknown Rx ED Physical Exam - General Limitations: No Limitations General appearance: alert, in no apparent distress - Head Head exam: Present: atraumatic, normocephalic - Eye Eye exam: Present: normal appearance, PERRL, EOMI - ENT ENT exam: Present: normal orophraynx, mucous membranes moist, TM's normal bilaterally, normal external ear exam - Respiratory Respiratory exam: Present: normal lung sounds bilaterally. Absent: respiratory distress, wheezes, rales, rhonchi, stridor, chest wall tenderness, accessory muscle use, decreased breath sounds, prolonged expiratory - Cardiovascular Cardiovascular Exam: Present: regular rate, normal rhythm, normal heart sounds. Absent: systolic murmur, diastolic murmur, rubs, gallop - Neurological Exam Neurological exam: Present: alert, oriented X3 - Psychiatric Psychiatric exam: Present: normal affect, normal mood - Skin Skin exam: Present: warm, dry, intact ED Course Vital Signs 05/02/19 05/02/19 05/02/19 18:24 19:45 19:55 Temperature 100.7 F H 100.4 F H Pulse Rate 104 H 91 H Respiratory 20 18 18 Rate Blood Pressure 120/69 Blood Pressure 115/69 [Left] O2 Sat by Pulse 98 97 Oximetry 05/02/19 05/02/19 05/02/19 19:58 20:28 20:55 Temperature Pulse Rate Respiratory 18 18 18 Rate Blood Pressure Blood Pressure [Left] O2 Sat by Pulse Oximetry 05/02/19 21:39 Temperature 98.8 F Pulse Rate 83 Respiratory 16 Rate Blood Pressure 105/71 Blood Pressure [Left] O2 Sat by Pulse 98 Oximetry ED Medical Decision Making - Lab Data Result diagrams: 05/02/19 19:53 05/02/19 19:53 Lab Results 05/02/19 05/02/19 05/02/19 Range/Units 19:53 19:53 19:53 WBC 4.2 L (4.5-11.0) K/mm3 RBC 3.57 L (3.65-5.03) M/mm3 Hgb 10.7 (10.1-14.3) gm/dl Hct 32.5 (30.3-42.9) % MCV 91 (79-97) fl MCH 30 (28-32) pg MCHC 33 (30-34) % RDW 15.1 (13.2-15.2) % Plt Count 199 (140-440) K/mm3 Lymph % (Auto) 8.6 L (13.4-35.0) % [place] % (Auto) 5.6 (0.0-7.3) % Eos % (Auto) 1.7 (0.0-4.3) % Baso % (Auto) 0.4 (0.0-1.8) % Lymph # 0.4 L (1.2-5.4) K/mm3 [place] # 0.2 (0.0-0.8) K/mm3 Eos # 0.1 (0.0-0.4) K/mm3 Baso # 0.0 (0.0-0.1) K/mm3 Seg Neutrophils % 83.7 H (40.0-70.0) % Seg Neutrophils # 3.5 (1.8-7.7) K/mm3 Sodium 137 (137-145) mmol/L Potassium 3.4 L (3.6-5.0) mmol/L Chloride 101.2 (98-107) mmol/L Carbon Dioxide 21 L (22-30) mmol/L Anion Gap 18 mmol/L BUN 9 (7-17) mg/dL Creatinine 0.8 (0.7-1.2) mg/dL Estimated GFR > 60 ml/min BUN/Creatinine Ratio 11 % Glucose 83 (65-100) mg/dL Calcium 8.6 (8.4-10.2) mg/dL Total Bilirubin 0.20 (0.1-1.2) mg/dL AST 19 (5-40) units/L ALT 15 (7-56) units/L Alkaline Phosphatase 42 (35-129) units/L Total Protein 6.4 (6.3-8.2) g/dL Albumin 3.9 (3.9-5) g/dL Albumin/Globulin Ratio 1.6 % Lipase 12 L (13-60) units/L HCG, Qual Negative (Negative) Influenza A (Rapid) (Negative) Influenza B (Rapid) (Negative) Group A Strep Rapid (Negative) 05/02/19 Range/Units Unknown WBC (4.5-11.0) K/mm3 RBC (3.65-5.03) M/mm3 Hgb (10.1-14.3) gm/dl Hct (30.3-42.9) % MCV (79-97) fl MCH (28-32) pg MCHC (30-34) % RDW (13.2-15.2) % Plt Count (140-440) K/mm3 Lymph % (Auto) (13.4-35.0) % [place] % (Auto) (0.0-7.3) % Eos % (Auto) (0.0-4.3) % Baso % (Auto) (0.0-1.8) % Lymph # (1.2-5.4) K/mm3 [place] # (0.0-0.8) K/mm3 Eos # (0.0-0.4) K/mm3 Baso # (0.0-0.1) K/mm3 Seg Neutrophils % (40.0-70.0) % Seg Neutrophils # (1.8-7.7) K/mm3 Sodium (137-145) mmol/L Potassium (3.6-5.0) mmol/L Chloride (98-107) mmol/L Carbon Dioxide (22-30) mmol/L Anion Gap mmol/L BUN (7-17) mg/dL Creatinine (0.7-1.2) mg/dL Estimated GFR ml/min BUN/Creatinine Ratio % Glucose (65-100) mg/dL Calcium (8.4-10.2) mg/dL Total Bilirubin (0.1-1.2) mg/dL AST (5-40) units/L ALT (7-56) units/L Alkaline Phosphatase (35-129) units/L Total Protein (6.3-8.2) g/dL Albumin (3.9-5) g/dL Albumin/Globulin Ratio % Lipase (13-60) units/L HCG, Qual (Negative) Influenza A (Rapid) Negative (Negative) Influenza B (Rapid) Negative (Negative) Group A Strep Rapid Negative (Negative) - Radiology Data Radiology results: report reviewed CHEST 2 VIEWS INDICATION / CLINICAL INFORMATION: MAIN: fever, cough; Pt. c/o body aches and fever. . COMPARISON: Chest radiograph 03/13/2019 FINDINGS: SUPPORT DEVICES: None. HEART / MEDIASTINUM: No significant abnormality. LUNGS / PLEURA: No significant pulmonary or pleural abnormality. No pneumothorax. ADDITIONAL FINDINGS: No significant additional findings. IMPRESSION: No acute finding. No significant change. Signer Name: Mookie Rose MD Signed: 05/02/2019 9:04 PM Workstation Name: [id number] Transcribed By: DMB Dictated By: Mookie Rose MD Electronically Authenticated By: Mookie Rose MD Signed Date/Time: 05/02/192103 DD/ 01 TD/TT: - Medical Decision Making Patient is a 33-year-old female presents emergency room with complaints of a fever that began today. She has associated generalized body aches, headache, occasional dry cough, generalized abdominal discomfort. She states that she took 200 mg of ibuprofen prior to arrival. She denies any nausea, vomiting, diarrhea, chills, rhinorrhea, shortness of breath, chest pain. She denies any recent travel. She denies any known sick contacts. She states he has a past medical history of asthma. She denies any issues with her asthma currently. She denies any allergies to medications. She states her last menstrual cycle was last week. Initial vitals with mildly elevated temp and mildly elevated heart rate which improved to normal upon repeat. Labs with mildly decreased white count and decreased lymphocytes. Potassium mildly decreased at 3.4, repleted with K-Dur. Rapid flu and strep are negative. CXR: No acute finding. No significant change. pt given 1L IVF, zofran, morphine and was feeling much better. Examination consistent with viral illness. Patient has had no recent travel and no sick contacts and has not been in contact with anyone who has tested positive for COVID 19, testing is not recommended at this time according to CDC recommendations. Patient has no pneumonia on her x-ray. advised pt Please increase your fluid intake over the next several days. May take Tylenol as needed for fever. May take [id number] cough cold medication. Please stay at home and do not go out until you are fever free for 48 hours. Please wash your hands frequently. If you cough or sneeze do it into a napkin and then throw it away and wash your hands again. Please wear a mask if you are around others in the home. Follow-up with a primary care doctor. Return to the emerg ency room immediately for any new or worsening symptoms including but not limited to chest pain, shortness of breath, difficulty breathing, increasing fevers despite Tylenol, inability to tolerate by mouth intake, etc. - Differential Diagnosis PNA, URI, influenza, strep throat, sinusitis, viral syndrome Critical care attestation.: If time is entered above; I have spent that time in minutes in the direct care of this critically ill patient, excluding procedure time. ED Disposition Clinical Impression: Viral illness Disposition: DC-01 TO HOME OR SELFCARE Is pt being admited?: No Does the pt Need Aspirin: No Condition: Stable Instructions: Viral Syndrome (ED) Additional Instructions: Please increase your fluid intake over the next several days. May take Tylenol as needed for fever. May take [id number]-kplucwn cough cold medication. Please stay at home and do not go out until you are fever free for 48 hours. Please wash your hands frequently. If you cough or sneeze do it into a napkin and then throw it away and wash your hands again. Please wear a mask if you are around others in the home. Follow-up with a primary care doctor. Return to the emergency room immediately for any new or worsening symptoms including but not limited to chest pain, shortness of breath, difficulty breathing, increasing fevers despite Tylenol, inability to tolerate by mouth intake, etc. Referrals: JABIER CALVILLO MD [Staff Physician] - 3-5 Days [facility] [Outside] - 3-5 Days Forms: Work/School Release Form(ED) Time of Disposition: 21:51 Print Language: UPPER SORBIAN
--- NOTE | 2019-05-02 21:08 | XRay Report ---
CHEST 2 VIEWS INDICATION / CLINICAL INFORMATION: MAIN: fever, cough; Pt. c/o body aches and fever. . COMPARISON: Chest radiograph 03/13/2019 FINDINGS: SUPPORT DEVICES: None. HEART / MEDIASTINUM: No significant abnormality. LUNGS / PLEURA: No significant pulmonary or pleural abnormality. No pneumothorax. ADDITIONAL FINDINGS: No significant additional findings. IMPRESSION: No acute finding. No significant change. Signer Name: Mookie Rose MD Signed: 05/02/2019 9:04 PM Workstation Name: [id number]
[2019-05-02 21:41] VITALS: BP 105/71
== END 2019-05-02 22:10 | disposition home or self-care (01) ==
LOC: ED 18:04
DX: B34.9 Viral infection, unspecified (principal); J45.909 Unspecified asthma, uncomplicated; F17.200 Nicotine dependence, unspecified, uncomplicated; Z98.890 Other specified postprocedural states; Z98.51 Tubal ligation status; Z90.49 Acquired absence of other specified parts of digestive tract; Z79.899 Other long term (current) drug therapy
CPT/HCPCS: 36415; 71046; 80053; 83690; 84703; 85025; 87116; 87400; 87430; 96374; 96375; 99284; J2270; J2405; J7030

== ENCOUNTER 2019-05-05 23:25 | Emergency (ER) | payer SELFPAY ==
[2019-05-05 23:35] VITALS: BP 98/72
== END 2019-05-06 04:10 | disposition left against medical advice (07) ==
LOC: ED 23:25
DX: R42 Dizziness and giddiness (principal); Z53.21 Procedure and treatment not carried out due to patient leaving prior to being seen by health care provider

== ENCOUNTER 2019-07-21 10:14 | Emergency (ER) | payer SELFPAY ==
--- NOTE | 2019-07-21 10:42 | Emergency Department Report ---
ED Laceration HPI - HPI Chief Complaint: Wound/Laceration Stated Complaint: CUT LEG Time Seen by Provider: 07/21/19 10:37 Occurred When: Today Location: Lower Extremity Tetanus Status: Up to Date Laceration Symptoms: Yes Pain, No Foreign Body Sensation, No Numbness, No W eakness Other History: Number 2:58 AM this morning to get out of the car scraped right leg on the vehicle resulting in superficial linear laceration. Complaint of pain and continue oozing of blood ED Review of Systems ROS: Stated complaint: CUT LEG Other details as noted in HPI Comment: All other systems reviewed and negative ED Past Medical Hx - Past Medical History Previous Medical History?: Yes Hx Asthma: Yes Additional medical history: recurrent skin cyst - Surgical History Past Surgical History?: Yes Hx Appendectomy: Yes Additional Surgical History: X 2, tubal ligation - Social History Smoking Status: Never Smoker Substance Use Type: None - Medications Home Medications: Home Medications Medication Instructions Recorded Confirmed Last Taken Type Clindamycin [Clindamycin CAP] 600 mg PO Q8H #30 capsule 11/02/16 Unknown Rx HYDROcodone/APAP 5-325 [[place] 1 each PO Q6HR PRN #12 tablet 11/02/16 Unknown Rx 5/325] Ibuprofen [Motrin] 600 mg PO Q8H PRN #15 tablet 11/02/16 Unknown Rx Doxycycline Hyclate [Doxycycline 100 mg PO Q12HR #20 tab 01/05/17 Unknown Rx Hyclate TAB] Ofloxacin 0.3% [Ocuflox 0.3% opth] 2 drops OP Q4HR #1 bottle 01/05/17 Unknown Rx methylPREDNISolone [Medrol] 4 mg PO DAILY 6 Days #1 tab.ds.pk 01/05/17 Unknown Rx Cephalexin [Keflex] 500 mg PO BID #20 capsule 04/26/17 Unknown Rx Ibuprofen [Ibuprofen 800] 800 mg PO Q8H PRN #30 tablet 04/26/17 Unknown Rx Albuterol Sulfate [Proair 90 mcg IH Q4HR PRN #2 aer.pow.ba 05/08/17 Unknown Rx Respiclick] Benzonatate [Tessalon Perles] 100 mg PO Q8HR PRN #30 capsule 05/08/17 Unknown Rx Ibuprofen [Motrin] 600 mg PO Q8H PRN #30 tablet 03/27/18 Unknown Rx Ondansetron [Zofran Odt] 4 mg PO Q8HR PRN #20 tab.rapdis 05/08/17 Unknown Rx predniSONE [Deltasone] 40 mg PO QDAY #8 tab 05/08/17 Unknown Rx Azithromycin [Zithromax Z-JANINE] 250 mg PO DAILY #6 tablet 09/26/17 Unknown Rx Prednisone [predniSONE 10 mg 10 mg PO .TAPER #1 tab.ds.pk 09/26/17 Unknown Rx (6-Day Pack, 21 Tabs)] Prednisone [predniSONE 10 mg 10 mg PO .TAPER #1 tab.ds.pk 02/27/18 Unknown Rx (6-Day Pack, 21 Tabs)] Albuterol INH(or & Nicu Only) 2 puff IH QID PRN #1 inhalation 05/12/18 Unknown Rx [ProAir HFA Inhaler] Acetaminophen [Non-Aspirin Extra 500 mg PO Q6HR PRN #30 tablet 03/13/19 Unknown Rx Strength] Albuterol Sulfate [Proair 90 mcg IH Q4HR PRN #2 aer.pow.ba 03/13/19 Unknown Rx Respiclick] Amoxicillin [Amoxicillin TAB] 875 mg PO BID #20 tablet 03/13/19 Unknown Rx Ibuprofen [Motrin] 600 mg PO Q8H PRN #30 tablet 03/13/19 Unknown Rx predniSONE [Deltasone] 40 mg PO QDAY #8 tab 03/13/19 Unknown Rx Laceration Physical Exam - Exam General: Vital signs noted. No distress. Alert and acting appropriately. Wound Length (cm): 3 Laceration Location: Lower Extremity Full Body Front + Back: 1 - linear superficial lacreration envolving the epidermis and poriton of the dermis. Laceration Exam: Yes Normal Distal CMS, No Foreign Body, No Exposed Tendon, Vessel, or Nerve, No Tendon Injury - Laceration /Wound Repair Lower Leg Wound Location: lower extremity Wound Explored: clean Betadine Prep?: Yes Wound Debrided: minimal Wound Repaired With: Steri-strips Layer Closure?: No Critical care attestation.: If time is entered above; I have spent that time in minutes in the direct care of this critically ill patient, excluding procedure time. ED Disposition Clinical Impression: Laceration of right lower leg Disposition: DC- TO HOME OR SELFCARE Is pt being admited?: No Does the pt Need Aspirin: No Condition: Stable Instructions: Laceration (ED), Skin Adhesive Care (ED) Referrals: [facility] [Provider Group] - 3-5 Days
== END 2019-07-21 12:00 | disposition home or self-care (01) ==
LOC: ED 10:14
DX: S81.811A Laceration without foreign body, right lower leg, initial encounter (principal); X58.XXXA Exposure to other specified factors, initial encounter; Y93.89 Activity, other specified; Y92.89 Other specified places as the place of occurrence of the external cause; Y99.8 Other external cause status
CPT/HCPCS: 99282

== ENCOUNTER 2019-11-06 18:31 | Emergency (ER) | payer OTHER ==
[2019-11-06] MEDS ORDERED: SODIUM CHLORIDE 0.9% 1000 ML 1,000 ML IV ONE (21:44)
[2019-11-06] MEDS ORDERED: ONDANSETRON 4 MG/2 ML INJ IV ONE (21:44)
[2019-11-06] MEDS ORDERED: MORPHINE 4 MG/1 ML INJ IV ONE (21:44)
[2019-11-06 22:07] LABS: Basophils # (Auto) 0.1 K/mm3 (0.0-0.1); Basophils % (Auto) 1.5 % (0.0-1.8); Eosinophils # (Auto) 0.4 K/mm3 (0.0-0.4); Eosinophils % (Auto) 7.8 % (0.0-4.3); Hematocrit 38.4 % (30.3-42.9); Hemoglobin 12.9 gm/dl (10.1-14.3); Lymphocytes # (Auto) 1.9 K/mm3 (1.2-5.4); Lymphocytes % (Auto) 40.3 % (13.4-35.0); Mean Corpuscular HGB Conc 34 % (30-34); Mean Corpuscular Volume 92 fl (79-97); Monocytes # (Auto) 0.3 K/mm3 (0.0-0.8); Monocytes % (Auto) 6.1 % (0.0-7.3); Platelet Count 257 K/mm3 (140-440); Red Blood Count 4.19 M/mm3 (3.65-5.03); Red Cell Distribution Width 14.2 % (13.2-15.2)
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
[2019-11-06 22:31] LABS: Alanine Aminotransferase 21 units/L (7-56); Blood Urea Nitrogen 15 mg/dL (7-17); Calcium 9.5 mg/dL (8.4-10.2); Hemolysis Index 3
[2019-11-06 22:43] LABS: BUN/Creatinine Ratio 21
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
[2019-11-07 00:04] LABS: Bilirubin,Urine NEG (Negative); Blood,Urine NEG (Negative); Color,Urine Yellow (Yellow); HCG Qualitative,Urine Negative (Negative); Mucus,Urine FEW /HPF; Protein,Urine <15 mg/dL mg/dL (Negative); Urobilinogen,Urine < 2.0 mg/dL (<2.0)
[2019-11-07] MEDS ORDERED: IPRATROPIUM/ALBUTEROL SULFATE 3 ML AMPUL.NEB IH ONE (00:10)
[2019-11-07] MEDS ORDERED: dexAMETHasone 20 MG/5 ML VIAL IV ONE (00:11)
[2019-11-07 00:33] VITALS: BP 113/71
== END 2019-11-07 00:43 | disposition home or self-care (01) ==
LOC: ED 18:31
DX: S39.011A Strain of muscle, fascia and tendon of abdomen, initial encounter (principal); J45.901 Unspecified asthma with (acute) exacerbation; F17.200 Nicotine dependence, unspecified, uncomplicated; Z98.51 Tubal ligation status; Z98.890 Other specified postprocedural states; Z90.49 Acquired absence of other specified parts of digestive tract; Z79.1 Long term (current) use of non-steroidal anti-inflammatories (NSAID); Z79.2 Long term (current) use of antibiotics; Z79.899 Other long term (current) drug therapy; V49.59XA Passenger injured in collision with other motor vehicles in traffic accident, initial encounter; Y93.89 Activity, other specified; Y92.410 Unspecified street and highway as the place of occurrence of the external cause; Y99.8 Other external cause status
CPT/HCPCS: 36415; 74177; 80053; 81001; 81025; 83690; 85025; 87076; 87086; 87186; 94640; 96361; 96374; 96375; 99284; J1100; J2270; J2405; J7030; Q9967

== ENCOUNTER 2020-07-30 05:38 | Emergency (ER) | payer SELFPAY | END 2020-07-30 06:15 | disposition left against medical advice (07) | LOC: ED 05:38 ==